=== PATIENT | male | born 1960 | race Caucasian/White ===

== ENCOUNTER 2019-11-21 13:08 | Outpatient (RCR) | payer MEDICARE, MEDICAID, SELFPAY | END 2019-12-18 23:59 | disposition home or self-care (01) | LOC: WOUND 13:08 | PROVIDERS: Visit Provider Nurse Practitioner Family | DX: G35 Multiple sclerosis (principal) | CPT/HCPCS: 87070; 87077; 87186 ==

== ENCOUNTER 2019-12-02 18:26 | Outpatient (REF) | payer MEDICARE, MEDICAID, SELFPAY ==
[2019-12-02 18:48] LABS: Hemoglobin 14.7 g/dL (11.7-16.6); Mean Corpuscular Hemoglobin 29.3 pg (28.0-34.0); Mean Corpuscular Volume 91.6 fL (80-94); Mean Platelet Volume 9.3 fL (7.4-10.4); Platelet Count 280 10^3/cmm (130-400); Red Blood Count 5.02 10^6/uL (4.1-5.3); Red Cell Distribution Width 12.9 % (12.1-15.1); White Blood Count 6.1 10^3/uL (4.0-10.0)
[2019-12-02 18:59] LABS: Alanine Aminotransferase 28 U/L (0-41); Albumin Level 4.4 g/dL (3.5-5.2); Alkaline Phosphatase 109 IU/L (40-130); Aspartate Amino Transferase 20 U/L (0-40); Blood Urea Nitrogen 13 mg/dL (6-20); Calcium 10.3 mg/dL (8.5-10.5); Carbon Dioxide 29 mmol/L (22-29); Chloride 95 mmol/L (98-107); Globulin 3.4 g/dL (1.3-4.6); Glomerular Filtration Rate 68.5 mL/min (90-130); Glucose 115 mg/dL (65-115); Immunoglobulin IGA 219 mg/dL (70-400); Immunoglobulin IGG 1192 mg/dL (700-1600); Osmolality Calculated 283 mOsm/kg (285-295); Sodium 138 mmol/L (136-145); Total Bilirubin 0.2 mg/dL (0.15-1.2); Total Protein 7.8 g/dL (6.6-8.7)
[2019-12-02 19:16] LABS: Immunoglobulin IGM < 25 mg/dL (40-230)
[2019-12-02 19:50] LABS: Absolute Segmented Neutrophil 3.9 10/cmm (1.6-7.1); Basophils Absolute 0.1 10^3/cmm (0.0-0.2); Lymphocytes 24 %; Lymphocytes Absolute 1.6 10^3/cmm (1.2-3.4); Monocytes Absolute 0.4 10^3/cmm (0.1-0.6); Segmented Neutrophils 65 %; Total Cells Counted 100 (0-100)
[2019-12-02 19:51] LABS: Platelet Estimate Normal (Normal)
== END 2019-12-02 18:27 | disposition home or self-care (01) ==
LOC: LAB 18:26
PROVIDERS: Visit Provider Psychiatry & Neurology Neurology
DX: G35 Multiple sclerosis (principal); Z79.899 Other long term (current) drug therapy
CPT/HCPCS: 80053; 82784; 85007; 85027; 86355; 86357; 86359; 86360

== ENCOUNTER → 2019-12-03 08:00 | Outpatient (BNVA) | payer MEDICARE, MEDICAID, SELFPAY | PROVIDERS: Visit Provider Nurse Practitioner Family | DX: A49.9 Bacterial infection, unspecified (principal); N39.0 Urinary tract infection, site not specified | CPT/HCPCS: 80053; 81001; 87077; 87086; 87186 ==

== ENCOUNTER 2020-01-19 15:57 | Outpatient (CLI) | payer MEDICARE, MEDICAID, SELFPAY | END 2020-01-19 15:58 | disposition home or self-care (01) | LOC: LAB 16:00 | PROVIDERS: Visit Provider Psychiatry & Neurology Neurology | DX: G35 Multiple sclerosis (principal) | CPT/HCPCS: 86355; 86357; 86359; 86360 ==

== ENCOUNTER 2023-06-14 21:38 | Emergency (ER) | payer MEDICARE, MEDICAID, SELFPAY ==
[2023-06-14 21:40] VITALS: BP 123/92; PULSE 100; RESP 20; TEMP 35.5; O2SAT 94; BMI 24.4
--- NOTE | 2023-06-14 21:58 | XRR_ITS ---
PROCEDURE INFORMATION: Exam: XR Chest Exam date and time: 06/14/2023 10:21 PM Age: 63 years old Clinical indication: Patient HX: General weakness. History of ms. TECHNIQUE: Imaging protocol: Radiologic exam of the chest. Views: 1 view. COMPARISON: MR cervical spine wo/w [id number] 05/28/2019 1:17 PM FINDINGS: Lungs: Unremarkable. No consolidation. Pleural spaces: Unremarkable. No pleural effusion. No pneumothorax. Heart/Mediastinum: Unremarkable. No cardiomegaly. Bones/joints: Unremarkable. XR/XR chest 1V portable [id number] IMPRESSION: No acute findings.
[2023-06-14 22:07] LABS: Basophils # 0.1 10^3/uL (0.0-0.1); Basophils % 0.7 %; Eosinophils # 0.1 10^3/uL (0.0-0.8); Eosinophils % 1.1 %; Hematocrit 42.3 % (37-53); Lymphocytes # 1.6 10^3/uL (0.8-4.8); Lymphocytes % 18.6 %; Mean Corpuscular Hemoglobin 29.3 pg (27-33); Mean Corpuscular Volume 86.2 fl (82-101); Mean Platelet Volume 9.4 fL (7.4-10.4); Monocytes # 0.9 10^3/uL (0.2-0.9); Monocytes % 10.5 %; Neutrophils # 5.82 10^3/uL (1.8-7.7); Neutrophils % 68.9 %; Nucleated Red Blood Cells % 0 %; Platelet Count 343 10^3/cmm (157-399); Red Blood Count 4.91 10^6/uL (3.85-5.65); Red Cell Distribution Width 13.3 % (12.1-15.1); White Blood Count 8.45 10^3/uL (3.29-11.43)
--- NOTE | 2023-06-14 22:14 | ECG_ITS ---
[facility] Test Date: 2023-06-14 Pat Name: Eldon Tristan Department: Room: Gender: Male [employer]: : 1960 Requested By: Karlos Young Order Number: [id number] Meena MD: Kiersten Wiley M.D. Measurements Intervals [place] Rate: 98 P: 38 [place]: 173 QRS: -52 QRSD: 108 T: 74 QT: 337 QTc: 432 Interpretive Statements SINUS RHYTHM WITH OCCASIONAL SUPRAVENTRICULAR PREMATURE COMPLEXES LEFT AXIS DEVIATION [QRS AXIS < -30] PATTERN CONSISTENT WITH PULMONARY DISEASE Compared to ECG 10/18/2014 12:18:09 Sinus tachycardia no longer present Myocardial infarct finding no longer present Electronically Signed On 06-15-2023 7:08:25 CDT by Kiersten Wiley M.D. [id number]
[2023-06-14 22:22] LABS: Alanine Aminotransferase 15 U/L (0-41); Alkaline Phosphatase 112 U/L (40-130); Anion Gap 13.2 (5-19); Aspartate Amino Transferase 15 U/L (0-40); Blood Urea Nitrogen 12 mg/dL (8-23); C Reactive Protein 19.5 mg/L (0.0-4.9); Calcium 9.4 mg/dL (8.5-10.5); Carbon Dioxide 26 mmol/L (22-29); Chloride 106 mmol/L (98-107); Globulin 2.5 g/dL (1.3-4.6); Glomerular Filtration Rate 75.5 mL/min (90-130); Glucose 106 mg/dL (65-115); Magnesium 2.2 mg/dL (1.7-2.3); Osmolality Calculated 292 mOsm/kg (285-295); Potassium 4.2 mmol/L (3.5-5.1); Sodium 141 mmol/L (136-145); Total Bilirubin 0.2 mg/dL (0.15-1.2); Total Protein 6.5 g/dL (6.6-8.7)
--- NOTE | 2023-06-14 22:26 | W.ED.WEAKNES ---
HPI - Weakness General: Chief complaint: Weakness Stated complaint: exacerbation of MS Time Seen by Provider: 06/14/23 21:45 History of Present Illness: Patient presents to the ER from the care home by EMS with complaints of having a MS exacerbation. The patient says he has been having jerking and weakness in his upper extremities since he change his medicine from ropinirole to a lower dose and started him on gabapentin. He thinks it started all of his problems. Patient says he normally does not have these types of relapses. He is also not been able to get his normal 6-month infusions because of insurance issues and he is approximately 1 month out now. He does have him rescheduled for sometime next month. Review of Systems General: Reports: 10 or more systems reviewed and unremarkable except in HPI and below PFSH ED PFSH: Medical History (Updated 06/14/23 @ 23:59 by Karlos Young DO) Anxiety and depression Depression Joint pain Multiple sclerosis MS diagnosed at 31 years of age but became symptomatic at age 29 Paranoia Restless leg Family History Other Multiple sclerosis Social History Smoking and tobacco/nicotine status: never used tobacco/nicotine Alcohol intake: never Substance/Drug Use: never Physical Exam Const: COMMON NORMALS: no acute distress, average body habitus, patient oriented x3, no limitations, healthy appearing, alert and well nourished HENMT: COMMON NORMALS: normocephalic, atraumatic, hearing grossly normal bilaterally, external ears normal, Normal external nose present, moist oral mucous membranes and oropharynx normal HEAD & SCALP: normocephalic and atraumatic NOSE: Normal external nose present EXTERNAL EAR: Yes external ears normal Neck/C-Spine: COMMON NORMALS: no JVD Chest: COMMONS NORMALS: normal inspection of the chest and normal palpation of entire chest wall Resp: COMMON NORMALS: normal respiratory effort, No retractions, No use of accessory muscles and clear to auscultation bilaterally AUSCULTATION: clear to auscultation bilaterally Cardio: COMMON NORMALS: no JVD, regular rate, regular rhythm, S1 normal heart sound present, S2 normal heart sound present, No gallops present (Cardio), No clicks present (Cardio), No murmurs present (Cardio) and No rub (Cardio) RATE: regular rate RHYTHM: regular rhythm HEART SOUNDS: S1 normal heart sound present and S2 normal heart sound present GI: COMMON NORMALS: Normal to inspection, nondistended, normoactive bowel sounds present, Soft to palpation, non-tender, No hepatosplenomegaly present and no masses PALPATION: Yes Soft to palpation and Yes No hepatosplenomegaly present Neuro: COMMON NORMALS: patient oriented x3 SENSORIUM/ORIENTATION: Yes alert Course Vital Signs: Vital signs: Vital Signs Temperature 96 F L 06/14/23 21:40 Pulse Rate 100 06/14/23 21:40 Respiratory Rate 20 H 06/14/23 21:40 Blood Pressure 123/92 06/14/23 21:40 Pulse Oximetry 94 06/14/23 21:40 MDM - Weakness Medical Decision Making Patient presents to the ER for evaluation for possible MS exacerbation due to weakness and the extremities and more tremor tics. Patient does have contractures. Patient's not been able to take his MS medicine consistently due to the infusions and insurance. Lab work was obtained as well as urine and a chest x-ray all of which did not show any acute findings. Patient was given 125 mg Solu-Medrol IV and will be discharged on prednisone 50 mg daily for the next 5 days. Patient should follow-up with his PCP within the next 7 to 10 days. Differential Diagnosis Unlikely acute myocardial infarction, anemia, hypoglycemia, hypothyroidism, rhabdomyolysis, sepsis or dehydration Medical Records I reviewed the patient's medical records. Lab Data I reviewed the patient's lab results. 06/14/23 20:51 06/14/23 20:51 Radiology Impressions Chest X-Ray 06/14/23 21:58 IMPRESSION: No acute findings. Laboratory Results WBC 8.45 10^3/uL (3.29-11.43) 06/14/23 20:51 RBC 4.91 10^6/uL (3.85-5.65) 06/14/23 20:51 Hgb 14.40 g/dL (11.27-16.99) 06/14/23 20:51 Hct 42.3 % (37-53) 06/14/23 20:51 MCV 86.2 fl (82-101) 06/14/23 20:51 MCH 29.3 pg (27-33) 06/14/23 20:51 MCHC 34.0 g/dL (30-55) 06/14/23 20:51 RDW 13.3 % (12.1-15.1) 06/14/23 20:51 Plt Count 343 10^3/cmm (157-399) 06/14/23 20:51 MPV 9.4 fL (7.4-10.4) 06/14/23 20:51 Neut % (Auto) 68.9 % 06/14/23 20:51 Lymph % (Auto) 18.6 % 06/14/23 20:51 [place] % (Auto) 10.5 % 06/14/23 20:51 Eos % (Auto) 1.1 % 06/14/23 20:51 Baso % (Auto) 0.7 % 06/14/23 20:51 Neut # (Auto) 5.82 10^3/uL (1.8-7.7) 06/14/23 20:51 Lymph # (Auto) 1.6 10^3/uL (0.8-4.8) 06/14/23 20:51 [place] # (Auto) 0.9 10^3/uL (0.2-0.9) 06/14/23 20:51 Eos # (Auto) 0.1 10^3/uL (0.0-0.8) 06/14/23 20:51 Baso # (Auto) 0.1 10^3/uL (0.0-0.1) 06/14/23 20:51 Nucleated RBC % (auto) 0 % 06/14/23 20:51 Nucleated RBCs # 0.0 /100WBC 06/14/23 20:51 Sodium 141 mmol/L (136-145) 06/14/23 20:51 Potassium 4.2 mmol/L (3.5-5.1) 06/14/23 20:51 Chloride 106 mmol/L (98-107) 06/14/23 20:51 Carbon Dioxide 26 mmol/L (22-29) 06/14/23 20:51 Anion Gap 13.2 (5-19) 06/14/23 20:51 BUN 12 mg/dL (8-23) 06/14/23 20:51 Creatinine 1.0 mg/dL (0.7-1.2) 06/14/23 20:51 GFR Calculation 75.5 mL/min (90-130) L 06/14/23 20:51 Glucose 106 mg/dL (65-115) 06/14/23 20:51 Calculated Osmolality 292 mOsm/kg (285-295) 06/14/23 20:51 Calcium 9.4 mg/dL (8.5-10.5) 06/14/23 20:51 Magnesium 2.2 mg/dL (1.7-2.3) 06/14/23 20:51 Total Bilirubin 0.2 mg/dL (0.15-1.2) 06/14/23 20:51 AST 15 U/L (0-40) 06/14/23 20:51 ALT 15 U/L (0-41) 06/14/23 20:51 Alkaline Phosphatase 112 U/L (40-130) 06/14/23 20:51 C-Reactive Protein 19.5 mg/L (0.0-4.9) H 06/14/23 20:51 Total Protein 6.5 g/dL (6.6-8.7) L 06/14/23 20:51 Albumin 4.0 g/dL (3.5-5.2) 06/14/23 20:51 Globulin 2.5 g/dL (1.3-4.6) 06/14/23 20:51 Urine Color Light yellow (Yellow) 06/14/23 23:30 Urine Appearance Clear (CLEAR) 06/14/23 23:30 Urine pH 6 (5-7) 06/14/23 23:30 Ur Specific [place] 1.010 (1.005-1.030) 06/14/23 23:30 Urine Protein Neg (Negative) 06/14/23 23:30 Urine Glucose (UA) Norm (Normal) 06/14/23 23:30 Urine Ketones Negative (Negative) 06/14/23 23:30 Urine Blood Neg (Negative) 06/14/23 23:30 Urine Nitrate Negative (Negative) 06/14/23 23:30 Urine Bilirubin Neg (Negative) 06/14/23 23:30 Urine Urobilinogen Neg mg/dL (Negative) 06/14/23 23:30 Ur Leukocyte Esterase Negative (Negative) 06/14/23 23:30 All radiology interpretation(s) finalized by discharge EKG Data EKG 1: I personally reviewed and interpreted this EKG as follows: EKG interpretation date: 06/14/23 EKG interpretation time: 22:14 Prior EKG tracings: not available for review Interpretation: EKG showed ventricular rate 98 bpm, OR interval 173, QRS duration 108, QTc of 393, sinus rhythm with occasional PVC, left axis deviation, Discharge Plan Discharge Patient Disposition: Home Clinical Impression: Multiple sclerosis Condition: Stable Prescriptions: New prednisone 50 mg tablet 50 mg PO DAILY Qty: 5 0RF No Action (DME) Motorized Wheelchair Qty: 1 0RF Rx Instructions: As directed ropinirole 0.25 mg tablet 0.25 mg PO DAILY diazepam 5 mg tablet 5 mg PO BID PRN sumatriptan succinate [Imitrex] 25 mg tablet 25 mg PO Q2H PRN diclofenac sodium [Voltaren] 1 % gel 2 gm TOPICAL QID 30 Days Qty: 100 5RF paroxetine HCl [Paxil] 10 mg tablet 10 mg PO QDAY 30 Days Qty: 30 1RF ropinirole [Requip XL] 12 mg tablet extended release 24 hr 12 mg PO DAILY ropinirole 2 mg tablet 2 mg PO BID aspirin [Aspir-Joanne] 325 mg tablet,delayed release (DR/EC) 325 mg PO DAILY acetaminophen [Tylenol Extra Strength] 500 mg tablet 500 mg PO Q6H PRN Discharge Orders: Discharge ED (Routine); Ordered 06/14/23 Ordered By: Karlos Young Patient Instructions: Multiple Sclerosis Activity Restrictions/Additional Instructions: Please take your medicine as directed. Please follow-up with your family practice physician within the next 7 to 10 days for further evaluation and treatment. Coding Level of Care Code ED Head Bucker for Katelyn Malone
[2023-06-14] MEDS: methylPREDNISolone sod succ 125 MG in water for injection-sterile 2 ML 24 MG IVP (23:08)
[2023-06-14 23:40] LABS: Add Urine Microscopic? NO; Charge for UA Resulting for Rev
[2023-06-14 23:47] LABS: Bilirubin Urine Neg (Negative); Blood Urine Neg (Negative); Glucose Urine UA Norm (Normal); Ketones Urine Negative (Negative); Leukocyte Esterase Urine Negative (Negative); Nitrate Urine Negative (Negative); Protein Urine Neg (Negative); Urine Appearance Clear (CLEAR); Urine Color Light yellow (Yellow); Urobilinogen Urine Neg (Negative); pH Urine 6 (5-7)
[2023-06-15 01:28] VITALS: BP 123/83; PULSE 77; O2SAT 95
[2023-06-15 01:30] VITALS: BP 123/83; PULSE 77; O2SAT 95
== END 2023-06-15 01:32 | disposition home or self-care (01) ==
PROVIDERS: Emergency Provider Emergency Medicine
DX: G35 Multiple sclerosis (principal); Z79.82 Long term (current) use of aspirin
CPT/HCPCS: 71045; 80053; 81003; 83735; 85025; 86140; 93005; 96374; 99285; J2930

== ENCOUNTER 2023-10-06 15:49 | Inpatient (IN) | payer MEDICARE, MEDICAID, SELFPAY ==
[2023-10-06] VITALS (30 sets, daily range): BP systolic 79–119; BP diastolic 44–70; PULSE 88–130; RESP 18–25; TEMP 37.1–39.5; O2SAT 90–97; BMI 25.7; BMI 27.5
--- NOTE | 2023-10-06 15:54 | ECG_ITS ---
[facility] Test Date: 2023-10-06 Pat Name: Eldon Tristan Department: Room: Gender: Male [employer]: : 1960 Requested By: Nina Corrales Order Number: [id number] Robledo MD: Mike Pham M.D. Measurements Intervals [place] Rate: 127 P: 23 [place]: 153 QRS: -39 QRSD: 88 T: 63 QT: 298 QTc: 435 Interpretive Statements SINUS TACHYCARDIA LEFT AXIS DEVIATION [QRS AXIS < -30] PATTERN CONSISTENT WITH PULMONARY DISEASE Compared to ECG 06/14/2023 22:14:31 Sinus rhythm no longer present Electronically Signed On 10-07-2023 7:47:25 CORPORATE ADMINISTRATOR by Mike Pham M.D. [id number]
--- NOTE | 2023-10-06 15:54 | XRR_ITS ---
PROCEDURE INFORMATION: Exam: XR Chest Exam date and time: 10/06/2023 4:16 PM Age: 63 years old Clinical indication: Shortness of breath; Patient HX: SOB TECHNIQUE: Imaging protocol: Radiologic exam of the chest. Views: 1 view. COMPARISON: CR XR chest 1V portable [id number] 06/14/2023 10:21 PM FINDINGS: Lungs: Unremarkable. No consolidation. Pleural spaces: Unremarkable. No pleural effusion. No pneumothorax. Heart/Mediastinum: Unremarkable. No cardiomegaly. Bones/joints: No acute findings. XR/XR chest 1V [id number] IMPRESSION: No acute findings.
--- NOTE | 2023-10-06 16:06 | ED_ITS ---
Documented by User: Nina Storm MD 10/06/23 18:11 HPI - Nausea/Vomiting/Diarrhea 2 General: Chief complaint: Nausea/Vomiting/Diarrhea Stated complaint: N/V Time Seen by Provider: 10/06/23 15:51 History of Present Illness: 63-year-old man with a history of multip le sclerosis who presents to the emergency room after having a fever and altered mental status. He says he was feeling good this morning. Family reports a temp of 105. EMS reports similar 104. He had been given some Tylenol at home. While he had the fever he had become fairly confused. He says he has had some cough. EMS reports he did have an episode of nausea and vomiting on the way here. Currently he says he feels fine. No chest pain. No shortness of breath. No abdominal pain. He is not confused any longer. No focal motor deficits outside of his baseline. Review of Systems 2 Narrative: Constitutional symptoms: Negative except as documented in HPI. Skin symptoms: Negative except as documented in HPI. Eye symptoms: Negative except as documented in HPI. ENMT symptoms: Negative except as documented in HPI. Respiratory symptoms: Negative except as documented in HPI. Cardiovascular symptoms: Negative except as documented in HPI. Gastrointestinal symptoms: Negative except as documented in HPI. Genitourinary symptoms: Negative except as documented in HPI. Musculoskeletal symptoms: Negative except as documented in HPI. Neurologic symptoms: Negative except as documented in HPI. Psychiatric symptoms: Negative except as documented in HPI. Endocrine symptoms: Negative except as documented in HPI. PFSH ED 2 PFSH: Medical History (Updated 10/06/23 @ 20:56 by Loyda Monique MD) Joint pain Anxiety and depression Paranoia Restless leg Multiple sclerosis MS diagnosed at 31 years of age but became symptomatic at age 29 Depression Family History Other Multiple sclerosis Social History Smoking and tobacco/nicotine status: never used tobacco/nicotine Alcohol intake: never Substance/Drug Use: never Physical Exam 2 Narrative: EXAM NARRATIVE: general: Alert, no acute distress. Skin: Warm, dry. Wound on the right ankle with dressing in place. However there is quite a bit of edema and erythema surrounding this. Also a wound on his buttock. These are several small wounds with also with some surrounding erythema. This likely could be a source of sepsis. Head: Normocephalic, atraumatic. Neck: Supple, trachea midline. Eye: Extraocular movements are intact. Ears, nose, mouth and throat: mucosa moist. Cardiovascular: Regular, Normal peripheral perfusion. Respiratory: Lungs are clear to auscultation, respirations are non-labored, breath sounds are equal, Symmetrical chest wall expansion. Gastrointestinal: Soft, Nontender, Non distended, Normal bowel sounds. Musculoskeletal: Patient has contractured right leg it is bent under his left. Weakness in his arms. No obvious deformity. Neurological: Alert and oriented, No focal neurological deficit observed. Psychiatric: Cooperative, appropriate mood & affect. Course 2 Vital Signs: Vital signs: Vital Signs Temperature 98.8 F 10/06/23 15:53 Pulse Rate 118 H 10/06/23 19:48 Respiratory Rate 25 H 10/06/23 19:48 Blood Pressure 89/68 10/06/23 19:48 Pulse Oximetry 97 10/06/23 19:48 Oxygen Delivery Me thod Nasal Cannula 10/06/23 19:48 Oxygen Flow Rate 3 10/06/23 19:48 MDM - Nausea/Vomiting/Diarrhea Medical Decision Making Medical decision making: Differential diagnosis including but not limited to and based on the above HPI, review of systems and physical exam: Patient with MS and a fever that is quite high. Some tachycardia. Concern for sepsis. Source is possible her urine, chest or skin . Also testing for flu and COVID. Blood cultures and lactic acid were ordered. 3 L normal saline bolus ordered. Broad-spectrum antibiotics were ordered. Lab Review: Laboratory results were reviewed and interpreted by myself the emergency room physician. White count is 22,000. The rest of lab work is pending Chest x-ray: No acute process. No pneumothorax. No infiltrate. No cardiomegaly. This was reviewed and interpreted by myself the ER physician. Lab Data 10/06/23 17:32 10/06/23 17:32 Radiology Impressions Chest X-Ray 10/06/23 15:54 IMPRESSION: No acute findings. Laboratory Results WBC 23.21 10^3/uL (3.29-11.43) H 10/06/23 17:32 RBC 5.05 10^6/uL (3.85-5.65) 10/06/23: Hgb 14.80 g/dL (11.27-16.99) 10/06/23: Hct 45.0 % (37-53) 10/06/23: MCV 89.1 fl (82-101) 10/06/23: MCH 29.3 pg (27-33) 10/06/23: MCHC 32.9 g/dL (30-55) 10/06/23: RDW 13.3 % (12.1-15.1) 10/06/23: Plt Count 158 10^3/cmm (157-399) 10/06/23: MPV 8.2 fL (7.4-10.4) 10/06/23: Neut % (Auto) 86.4 % 10/06/23: Lymph % (Auto) 2.4 % 10/06/23: [place] % (Auto) 9.7 % 10/06/23: Eos % (Auto) 0.0 % 10/06/23: Baso % (Auto) 0.3 % 10/06/23: Neut # (Auto) 20.07 10^3/uL (1.8-7.7) H 10/06/23: Lymph # (Auto) 0.6 10^3/uL (0.8-4.8) L 10/06/23: [place] # (Auto) 2.2 10^3/uL (0.2-0.9) H 10/06/23: Eos # (Auto) 0.0 10^3/uL (0.0-0.8) 10/06/23: Baso # (Auto) 0.1 10^3/uL (0.0-0.1) 10/06/23: Nucleated RBC % (auto) 0 % 10/06/23 Nucleated RBCs # 0.0 /100WBC 10/06/23: D-Dimer 0.37 ug/mLFEU (0-0.59) 10/06/23: Sodium 131 mmol/L (136-145) L 02/17/24 17:32 Potassium 3.8 mmol/L (3.5-5.1) 10/06/23 17:32 Chloride 99 mmol/L (98-107) 10/06/23 17:32 Carbon Dioxide 22 mmol/L (22-29) 10/06/23 17:32 Anion Gap 13.8 (5-19) 10/06/23 17:32 BUN 16 mg/dL (8-23) 10/06/23 17:32 Creatinine 1.0 mg/dL (0.7-1.2) 10/06/23 17:32 GFR Calculation 75.5 mL/min (90-130) L 10/06/23 17:32 Glucose 130 mg/dL (65-115) H 10/06/23 17:32 Calculated Osmolality 275 mOsm/kg (285-295) L 10/06/23 17:32 Lactic Acid 1.4 mmol/L (0.5-2.2) 10/06/23 17: Calcium 8.2 mg/dL (8.5-10.5) L 10/06/23 17:32 Total Bilirubin 0.4 mg/dL (0.15-1.2) 10/06/23 17: AST 17 U/L (0-40) 10/06/23: ALT 14 U/L (0-41) 10/06/23 17:32 Alkaline Phosphatase 103 U/L (40-130) 10/06/23 17:32 C-Reactive Protein 44.9 mg/L (0.0-4.9) H 10/06/23 17:32 Total Protein 6.0 g/dL (6.6-8.7) L 10/06/23 17:32 Albumin 3.3 g/dL (3.5-5.2) L 10/06/23 17:32 Globulin 2.7 g/dL (1.3-4.6) 10/06/23 17:32 Urine Color Yellow (Yellow) 10/06/23 19:17 Urine Appearance Clear (CLEAR) 10/06/23 19:17 Urine pH 7 (5-7) 10/06/23 19:17 Ur Specific [place] 1.000 (1.005-1.030) L 10/06/23 19:17 Urine Protein Trace (Negative) 10/06/23 19:17 Urine Glucose (UA) Norm (Normal) 10/06/23 19:17 Urine Ketones Negative (Negative) 10/06/23 19:17 Urine Blood 2+ (Negative) H 10/06/23 19:17 Urine Nitrate Negative (Negative) 10/06/23 19:17 Urine Bilirubin Neg (Negative) 10/06/23 19:17 Urine Urobilinogen Norm mg/dL (Negative) 10/06/23 19:17 Ur Leukocyte Esterase Trace (Negative) H 10/06/23 19:17 Urine RBC 5-10 /hpf (0-2) H 10/06/23 19:17 Urine WBC 0-4 /hpf (0-5) H 10/06/23 19:17 Ur Squamous Epith Cells 0-4 /hpf (0-5) H 10/06/23 19:17 Amorphous Sediment Not Reportable 10/06/23 19:17 Urine Bacteria Trace /hpf (NONE) 10/06/23 19:17 Urine Mucus Trace /hpf 10/06/23 19:17 Influenza Type A Ag negative (Negative) 10/06/23 16:08 Influenza Type B Ag negative (Negative) 10/06/23 16:08 SARS-CoV-2 Ag (Rapid) negative (Negative) 10/06/23 16:08 XR interpretation done by ED provider, pending radiology final review Discharge Plan Discharge Patient Disposition: Admitted As Inpatient Admit Provider: Kamran Sears Clinical Impression: Multiple sclerosis, Sepsis, Decubitus ulcer Condition: Stable Coding Level of Care Code ED Correspondent for Chg Fwd Documented by User: Loyda Monique MD 10/06/23 21:11 HPI - Nausea/Vomiting/Diarrhea 2 General: Chief complaint: Nausea/Vomiting/Diarrhea Stated complaint: N/V Time Seen by Provider: 10/06/23 15:51 PFSH ED 2 PFSH: Medical History (Updated 10/06/23 @ 20:56 by Loyda Monique MD) Joint pain Anxiety and depression Paranoia Restless leg Multiple sclerosis MS diagnosed at 31 years of age but became symptomatic at age 29 Depression Family History Other Multiple sclerosis Social History Smoking and tobacco/nicotine status: never used tobacco/nicotine Alcohol intake: never Substance/Drug Use: never Course 2 Vital Signs: Vital signs: Vital Signs Temperature 98.8 F 10/06/23 15:53 Pulse Rate 118 H 10/06/23 19:48 Respiratory Rate 25 H 10/06/23 19:48 Blood Pressure 89/68 10/06/23 19:48 Pulse Oximetry 97 10/06/23 19:48 Oxygen Delivery Me thod Nasal Cannula 10/06/23 19:48 Oxygen Flow Rate 3 10/06/23 19:48 MDM - Nausea/Vomiting/Diarrhea Medical Decision Making Medical decision making: Differential diagnosis including but not limited to and based on the above HPI, review of systems and physical exam: Patient with MS and a fever that is quite high. Some tachycardia. Concern for sepsis. Source is possible her urine, chest or skin . Also testing for flu and COVID. Blood cultures and lactic acid were ordered. 3 L normal saline bolus ordered. Broad-spectrum antibiotics were ordered. Lab Review: Laboratory results were reviewed and interpreted by myself the emergency room physician. White count is 22,000. The rest of lab work is pending Chest x-ray: No acute process. No pneumothorax. No infiltrate. No cardiomegaly. This was reviewed and interpreted by myself the ER physician. Patient presents here with sepsis his blood pressures improved after sepsis IV bolus he started antibiotics as well. He does have decubitus ulcer could be source of his infection spoke to the hospitalist will admit to ICU Lab Data 10/06/23 17:32 10/06/23 17:32 Radiology Impressions Chest X-Ray 10/06/23 15:54 IMPRESSION: No acute findings. Laboratory Results WBC 23.21 10^3/uL (3.29-11.43) H 10/06/23 17:32 RBC 5.05 10^6/uL (3.85-5.65) 10/06/23 17:32 Hgb 14.80 g/dL (11.27-16.99) 10/06/23: Hct 45.0 % (37-53) 10/06/23: MCV 89.1 fl (82-101) 10/06/23: MCH 29.3 pg (27-33) 10/06/23: MCHC 32.9 g/dL (30-55) 10/06/23: RDW 13.3 % (12.1-15.1) 10/06/23: Plt Count 158 10^3/cmm (157-399) 10/06/23: MPV 8.2 fL (7.4-10.4) 10/06/23: Neut % (Auto) 86.4 % 10/06/23: Lymph % (Auto) 2.4 % 10/06/23: [place] % (Auto) 9.7 % 10/06/23 Eos % (Auto) 0.0 % 10/06/23 Baso % (Auto) 0.3 % 10/06/23: Neut # (Auto) 20.07 10^3/uL (1.8-7.7) H 10/06/23: Lymph # (Auto) 0.6 10^3/uL (0.8-4.8) L 10/06/23: [place] # (Auto) 2.2 10^3/uL (0.2-0.9) H 10/06/23: Eos # (Auto) 0.0 10^3/uL (0.0-0.8) 10/06/23: Baso # (Auto) 0.1 10^3/uL (0.0-0.1) 10/06/23 Nucleated RBC % (auto) 0 % 10/06/23 Nucleated RBCs # 0.0 /100WBC 10/06/23: D-Dimer 0.37 ug/mLFEU (0-0.59) 10/06/23: Sodium 131 mmol/L (136-145) L 10/06/23: Potassium 3.8 mmol/L (3.5-5.1) 02/17/24 17:32 Chloride 99 mmol/L (98-107) 10/06/23 17:32 Carbon Dioxide 22 mmol/L (22-29) 10/06/23 17:32 Anion Gap 13.8 (5-19) 10/06/23 17:32 BUN 16 mg/dL (8-23) 10/06/23 17:32 Creatinine 1.0 mg/dL (0.7-1.2) 10/06/23 17:32 GFR Calculation 75.5 mL/min (90-130) L 10/06/23 17:32 Glucose 130 mg/dL (65-115) H 10/06/23 17:32 Calculated Osmolality 275 mOsm/kg (285-295) L 10/06/23 17:32 Lactic Acid 1.4 mmol/L (0.5-2.2) 10/06/23 17:32 Calcium 8.2 mg/dL (8.5-10.5) L 10/06/23 17:32 Total Bilirubin 0.4 mg/dL (0.15-1.2) 10/06/23 17:32 AST 17 U/L (0-40) 10/06/23 17:32 ALT 14 U/L (0-41) 10/06/23 17:32 Alkaline Phosphatase 103 U/L (40-130) 10/06/23 17:32 C-Reactive Protein 44.9 mg/L (0.0-4.9) H 10/06/23 17:32 Total Protein 6.0 g/dL (6.6-8.7) L 10/06/23 17:32 Albumin 3.3 g/dL (3.5-5.2) L 10/06/23 17:32 Globulin 2.7 g/dL (1.3-4.6) 10/06/23 17:32 Urine Color Yellow (Yellow) 10/06/23 19:17 Urine Appearance Clear (CLEAR) 10/06/23 19:17 Urine pH 7 (5-7) 10/06/23 19:17 Ur Specific [place] 1.000 (1.005-1.030) L 10/06/23 19:17 Urine Protein Trace (Negative) 10/06/23 19:17 Urine Glucose (UA) Norm (Normal) 10/06/23 19:17 Urine Ketones Negative (Negative) 10/06/23 19:17 Urine Blood 2+ (Negative) H 10/06/23 19:17 Urine Nitrate Negative (Negative) 10/06/23 19:17 Urine Bilirubin Neg (Negative) 10/06/23 19:17 Urine Urobilinogen Norm mg/dL (Negative) 10/06/23 19:17 Ur Leukocyte Esterase Trace (Negative) H 10/06/23 19:17 Urine RBC 5-10 /hpf (0-2) H 10/06/23 19:17 Urine WBC 0-4 /hpf (0-5) H 10/06/23 19:17 Ur Squamous Epith Cells 0-4 /hpf (0-5) H 10/06/23 19:17 Amorphous Sediment Not Reportable 10/06/23 19:17 Urine Bacteria Trace /hpf (NONE) 10/06/23 19:17 Urine Mucus Trace /hpf 10/06/23 19:17 Influenza Type A Ag negative (Negative) 10/06/23 16:08 Influenza Type B Ag negative (Negative) 10/06/23 16:08 SARS-CoV-2 Ag (Rapid) negative (Negative) 10/06/23 16:08 Discharge Plan Discharge Patient Disposition: Admitted As Inpatient Admit Provider: Kamran Sears Clinical Impression: Multiple sclerosis, Sepsis, Decubitus ulcer Condition: Stable Coding Level of Care Code ED Correspondent for Katelyn Malone
--- NOTE | 2023-10-06 16:11 | PC.PHAR ---
PT IS FROM [facility]. [email or web address] LIST 10/06/23 4:10PM
[2023-10-06 16:36] LABS: Influenza A by IFA negative (Negative); Influenza B by IFA negative (Negative); SARS Covid-2 Antigen negative (Negative)
[2023-10-06] MEDS: sodium chloride 0.9% 1,000 ML 999 ML IV ×4 (17:03→19:30)
[2023-10-06 17:43] LABS: Basophils # 0.1 10^3/uL (0.0-0.1); Basophils % 0.3 %; Lymphocytes # 0.6 10^3/uL (0.8-4.8); Lymphocytes % 2.4 %; Mean Corpuscular HGB Conc 32.9 g/dL (30-55); Mean Corpuscular Hemoglobin 29.3 pg (27-33); Mean Corpuscular Volume 89.1 fl (82-101); Mean Platelet Volume 8.2 fL (7.4-10.4); Monocytes # 2.2 10^3/uL (0.2-0.9); Monocytes % 9.7 %; Neutrophils # 20.07 10^3/uL (1.8-7.7); Neutrophils % 86.4 %; Nucleated Red Blood Cells % 0 %; Platelet Count 158 10^3/cmm (157-399); Red Blood Count 5.05 10^6/uL (3.85-5.65); Red Cell Distribution Width 13.3 % (12.1-15.1); White Blood Count 23.21 10^3/uL (3.29-11.43)
[2023-10-06 18:11] LABS: Lactic Sepsis W/Reflex 1.4 mmol/L (0.5-2.2)
[2023-10-06 18:13] LABS: Alanine Aminotransferase 14 U/L (0-41); Albumin Level 3.3 g/dL (3.5-5.2); Alkaline Phosphatase 103 U/L (40-130); Anion Gap 13.8 (5-19); Aspartate Amino Transferase 17 U/L (0-40); Blood Urea Nitrogen 16 mg/dL (8-23); C Reactive Protein 44.9 mg/L (0.0-4.9); Calcium 8.2 mg/dL (8.5-10.5); Carbon Dioxide 22 mmol/L (22-29); Chloride 99 mmol/L (98-107); Globulin 2.7 g/dL (1.3-4.6); Glomerular Filtration Rate 75.5 mL/min (90-130); Glucose 130 mg/dL (65-115); Osmolality Calculated 275 mOsm/kg (285-295); Potassium 3.8 mmol/L (3.5-5.1); Sodium 131 mmol/L (136-145); Total Bilirubin 0.4 mg/dL (0.15-1.2)
[2023-10-06] MEDS: cefepime 2,000 MG in sodium chloride 0.9% (plus) 50 ML 100 MG IV (18:33)
[2023-10-06] MEDS: linezolid premix 600 MG/300 ML PREMIX 300 MG IV (19:48)
[2023-10-06 19:53] LABS: Bacteria Urine TRACE /hpf; Bilirubin Urine Neg (Negative); Blood Urine 2+ (Negative); Glucose Urine UA Norm (Normal); Ketones Urine Negative (Negative); Leukocyte Esterase Urine Trace (Negative); Mucus Urine TRACE /hpf; Nitrate Urine Negative (Negative); Protein Urine Trace (Negative); Squamous Epithelial Cell Urine 0-4 /hpf (0-5); Urine Appearance Clear (CLEAR); Urine Color Yellow (Yellow); Urobilinogen Urine Norm (Negative); WBC Urine 0-4 /hpf (0-5); pH Urine 7 (5-7)
[2023-10-06 20:27] LABS: D Dimer 0.37 ug/mLFEU (0-0.59)
--- NOTE | 2023-10-06 20:40 | P.HP_ITS ---
Providers/Chief Complaint 2 Chief Complaint: N/V History of Present Illness Pleasant 63-year-old gentleman with history of MS, [facility] resident, remote history of bacteremia he states of unclear source, decubitus ulcer on sacrum and right ankle, on chronic anticoagulation, he states since being on anticoagulant has not had any further issues with blood clots, he is nonambulatory at baseline, does not have a chronic Ojeda or other medical devices. Was brought in from retirement for evaluation to ER due to altered mental status, malaise, fever 105. Reports had 1 episode of vomiting without recurrence, not nauseated currently. He is malaise, with diffuse bodyaches, sweats, chills. States he feels similarly to how he was at the time he was diagnosed with bacteremia in the past. Has mild chronic cough with minimal sputum which is not new. Denies chest pain or pressure. No diarrhea. In ER with sinus tachycardia, hypotension, blood pressure down to 86/65 leukocytosis 20.21. EKG with sinus tachycardia, LAD. Chest x-ray without acute findings. Urinalysis with minimal RBC, WBC. Trace leukocyte esterase. With suspected sepsis received 3 L fluid boluses due to hypotension, blood cultures collected, received cefepime, linezolid. Review of Systems 2 Const: Reports: fever(s), chills, body aches, malaise and diaphoresis ENMT: Denies: throat pain Card: Denies: chest pain, edema, pre-syncope or dyspnea on exertion Resp: Denies: dyspnea, productive cough, change in phlegm color or hemoptysis GI: Reports: vomiting; Denies: abdominal pain, nausea, diarrhea, constipation, hematochezia or melena : Denies: flank pain, difficulty urinating, urinary frequency or hematuria Musc: Denies: back pain, joint swelling or joint redness Skin/Breast: Reports: sores Neuro: Denies: headache(s) Medications/Allergies Home Medications Medication Instructions Recorded Confirmed Last Taken Type diazepam 5 mg tablet 5 mg PO BID PRN 10/24/19 05/15/23 Unknown History diclofenac sodium 1 % topical gel 2 gm topical QID 30 days #100 grams 10/24/19 05/15/23 Unknown Rx (Voltaren) paroxetine HCl 10 mg tablet (Paxil) 10 mg PO QDAY 30 days #30 tabs 10/24/19 05/15/23 Unknown Rx ropinirole 0.25 mg tablet 0.25 mg PO DAILY 10/24/19 05/15/23 Unknown History sumatriptan succinate 25 mg tablet 25 mg PO Q2H PRN 10/24/19 05/15/23 Unknown History (Imitrex) Motorized Wheelchair #1 ea 11/06/19 05/15/23 Unknown Rx acetaminophen 500 mg tablet 500 mg PO Q6H PRN 11/14/19 05/15/23 Unknown History (Tylenol Extra Strength) aspirin 325 mg tablet,delayed 325 mg PO DAILY 11/14/19 05/15/23 Unknown History release (Aspir-Joanne) ropinirole 12 mg tablet,extended 12 mg PO DAILY 11/14/19 05/15/23 Unknown History release 24 hr (Requip XL) ropinirole 2 mg tablet 2 mg PO BID 11/14/19 05/15/23 Unknown History prednisone 50 mg tablet 50 mg PO DAILY #5 tabs 06/14/23 Unknown Rx Allergies Allergy/AdvReac Type Severity Reaction Status Date / Time Iodinated Contrast Media AdvReac nausea and Verified 05/15/23 08:33 vomiting PFSH Acute 2 PFSH: Medical History (Updated 10/06/23 @ 20:56 by Loyda Monique MD) Joint pain Anxiety and depression Paranoia Restless leg Multiple sclerosis MS diagnosed at 31 years of age but became symptomatic at age 29 Depression Family History Other Multiple sclerosis Social History Smoking and tobacco/nicotine status: never used tobacco/nicotine Alcohol intake: never Substance/Drug Use: never Vitals/I&O/Wt Last Vital Signs Temp 98.8 F 10/06/23 15:53 Pulse 118 H 10/06/23 19:48 Resp 25 H 10/06/23 19:48 BP 89/68 10/06/23 19:48 Pulse Ox 97 10/06/23 19:48 O2 Del Method Nasal Cannula 10/06/23 19:48 O2 Flow Rate 3 10/06/23 19:48 10/06/23 10/06/23 10/06/23 06:59 14:59 22:59 Intake Total 3050 / 3050 Balance 3050 / 3050 Weight last 48 hrs Weight 86.183 kg Physical Exam 2 Const: COMMON NORMALS: patient oriented x3 and alert GENERAL APPEARANCE: c ooperative, ill appearing and diaphoretic ORIENTATION/CONSCIOUSNESS: Yes awake OTHER: Chills HENMT: COMMON NORMALS: oropharynx normal Neck/C-Spine: COMMON NORMALS: no JVD Resp: COMMON NORMALS: normal respiratory effort and clear to auscultation bilaterally AUSCULTATION: clear to auscultation bilaterally Cardio: COMMON NORMALS: regular rate and No murmurs present (Cardio) GI: COMMON NORMALS: Normal to inspection, nondistended, normoactive bowel sounds present, Soft to palpation and non-tender PALPATION: Yes Soft to palpation Extremity: COMMON NORMALS: no joint enlargement and no pedal edema N ARRATIVE EXTREMITY EXAM: Weak, worse weakness and spasticity on the R side of body. Contractures RUE and RLE. Neuro: COMMON NORMALS: patient oriented x3; negative for moves all extremities SENSORIUM/ORIENTATION: Yes alert Skin: NARRATIVE SKIN EXAM: Dwecub ulcer and shear injury sacrum, R upper gluteal wound. Minimal bleeding, shallow ulceration/abrasions. Minimal old erythema, minimal induration, no significant swelling or fluctuance. No necrosis or purulent drainage. Above the lateral right ankle there is a wound with ulceration about 2-3 mm deep, about 1 x 3 cm inside with clean base, no tunneling or undermining but with surrounding erythema and edema about 4 cm radius no purulent drainage. Despite edema I do not appreciate fluctuance in that area. I do not appreciate involvement of the ankle joint. Sepsis: Is patient septic: Yes Focused sepsis exam: Warm diaphoretic skin, appears well-perfused, no cyanosis or mottling. Normal capillary refill. Data 10/06/23 17:32 10/06/23 17:32 Micro: Microbiology 10/06/23 17:35 Blood Culture - Preliminary Blood SPECIMEN COLLECTED 10/06/23 17:32 Blood Culture - Preliminary Blood SPECIMEN COLLECTED A&P Assessment and plan (1) Sepsis: With reported fever, tachycardia, tachypnea in ER, leukocytosis 20.21. Sepsis with hypotension on presentation. Reviewed vitals, CBC, CMP, lactic acid, obtained D-dimer, rapid influenza, rapid COVID, UA, chest x-ray, EKG, ER documentation, discussed with ER physician. Hypotensive to presentation but so far has responded to IV fluid boluses. With response to boluses but still borderline shock, blood pressure soft. Continues with sinus tachycardia. Question of possible adrenal insufficiency. So far sepsis with reported transient alteration of mental status with likely metabolic encephalopathy. Blood cultures collected, she was started on cefepime, linezolid, continue broad-spectrum coverage currently with concern for infection. He reports history of bacteremia of unknown source. Follow-up blood cultures. Chest x-ray is unremarkable. UA with some RBC but only 5-10, no WBC, no compelling evidence for urinary tract infection. Will assess CT kidney stone protocol due to microscopic hematuria and sepsis. He does appear to have cellulitis around the pressure ulcer above the lateral right ankle with a ring of erythema and edema of about 8-10 cm around the ulcer. Ulcer itself does not appear to have tunneling or undermining, no purulent drainage. I do not appreciate fluctuance. Sacral ulcer with some shear injury, mild pressure bleeding, mild induration, no significant erythema apart from old erythema/discoloration, no necrosis or purulent drainage appreciated. Will additionally image with ultrasound soft tissue of the ankle and sacral wound to assess for any underlying abscess. Additionally with history of MS, multiple rounds of steroids in the past, hypotension, hyponatremia, discussed with him possibility of adrenal insufficiency. For now we will start on stress dose of cortisol, check random cortisol. Follow-up. De-escalate depending on results and condition. He is nonambulatory at baseline. With sinus tachycardia, hypotension, discussed with him possibility of VTE. Obtained and reviewed D-dimer, unremarkable, and he states he is on Xarelto 20 mg daily, low likelihood of PE. (2) Decubitus ulcer: Sacral and above lateral right ankle the lateral with surrounding rim of cellulitis. Antibiotics as above. Continue wound care. Further assess with ultrasound. Wound care. Plan MS: Received still once monthly infusion. Has had multiple rounds of steroids in the past. He is on gabapentin, diazepam. Requesting to confirm home medications. Restless leg syndrome: On ropinirole, continue once dose is given. Bedbound. Psychiatric history Goals of care discussion: In case of cardiopulmonary rest would want attempted resuscitation. Would be okay with temporary life support. In case could not make decisions for himself names his 3 children as surrogate decision makers. Requested home medications to be confirmed, please review and reconcile once available. Attestations 2 Medical Necessity Statement*: Admission of over 2 midnights anticipated for assessment management of sepsis with hypotension, transient altered mental status, further workup of possible sources, treatment of cellulitis around decubitus ulcer above the right ankle, possible adrenal insufficiency, initial man with underlying multiple sclerosis. Coding Level of Care Code Critical Care >/= 30 minutes Critical care time (in minutes): 35 The high probability of a clinically significant, sudden or life threatening deterioration, as referenced in this documentation, required my full and direct attention, intervention and personal management. The critical care time shown is in addition to time spent performing any reported separately billable procedures and includes the following: [x] Data and vital sign review and interpretation [x ] Patient assessment, examination and intervention [x] Medication orders and management [x] Patient/Family updates as able [x] Care Coordination and Documentation. Diagnoses Sepsis A41.9 Decubitus ulcer L89.90
[2023-10-06] MEDS: acetaminophen 500 mg Tablet 1000 MG PO (21:25)
--- NOTE | 2023-10-06 21:44 | PC.NURSE ---
Arrival to ICU: Pt arrived to ICU 2 @4 via stretcher from ER. Continuos Cardiac monitoring continued. Wounds noted on arrival: Pressure injury to the sacrum and R. Ankle.
--- NOTE | 2023-10-06 21:50 | CTR_ITS ---
PROCEDURE INFORMATION: Exam: CT Abdomen And Pelvis Without Contrast Exam date and time: 10/07/2023 12:52 AM Age: 63 years old Clinical indication: Abnormal findings; Abnormal lab test; Elevated wbc; Patient HX: Wbc of 23k with hematuria; Additional info: Sepsis TECHNIQUE: Imaging protocol: Computed tomography of the abdomen and pelvis without contrast. Radiation optimization: All CT scans at this facility use at least one of these dose optimization techniques: automated exposure control; mA and/or kV adjustment per patient size (includes targeted exams where dose is matched to clinical indication); or iterative reconstruction. COMPARISON: CR (CHEST, ) 10/06/2023 4:16 PM RADIATION DOSE METRICS: Total DLP (mGy-cm): 1672.58 FINDINGS: Lungs: Consolidation with air bronchograms in the right lung base atelectatic changes left lung base. Liver: Normal. No mass. Gallbladder and bile ducts: Normal. No calcified stones. No ductal dilation. Pancreas: Normal. No ductal dilation. Spleen: Normal. No splenomegaly. Adrenal glands: Normal. No mass. Kidneys and ureters: Normal. No hydronephrosis. Stomach and bowel: Unremarkable. No obstruction. No mucosal thickening. Appendix: No evidence of appendicitis. Intraperitoneal space: Unremarkable. No free air. No significant fluid collection. Vasculature: Atherosclerotic disease. Lymph nodes: Unremarkable. No enlarged lymph nodes. Urinary bladder: There is a Ojeda catheter in the bladder. The bladder is decompressed. Reproductive: Unremarkable as visualized. Bones/joints: Unremarkable. No acute fracture. Soft tissues: Unremarkable. CT/CT kidney stone [id number] IMPRESSION: 1. Consolidation with air bronchograms in the right lung base atelectatic changes left lung base. 2. No bowel obstruction or inflammatory process associated with the bowel. 3. No free air or significant free fluid in the abdomen or pelvis. 4. The appendix images normally.
[2023-10-06] MEDS: hydrocortisone 100 mg/2 mL SDV IVP (22:29)
[2023-10-06] MEDS: pantoprazole 40 mg SDV IVP (22:44)
[2023-10-06 23:32] LABS: Magnesium 1.8 mg/dL (1.7-2.3)
[2023-10-06 23:33] LABS: Cortisol Random 18.66 ug/dL (2.47-19.5)
[2023-10-07] VITALS (101 sets, daily range): BP systolic 78–135; BP diastolic 44–100; PULSE 52–91; RESP 9–33; TEMP 36.6–37.2; O2SAT 90–100
[2023-10-07] MEDS: albumin 25 G/100 ML BAG 60 G IV (00:07)
--- NOTE | 2023-10-07 00:31 | PC.NURSE ---
Low BP: Dr. Sears notified of low BP @approximately 2220. New order to preform Cheetah and for albumin. PLR preformed- SVI 54.8%. R. Leg is difficult to move, Dr. Sears aware.
[2023-10-07] MEDS: hydrocortisone 100 mg/2 mL SDV IVP ×2 (02:52→09:04)
[2023-10-07 05:05] LABS: Basophils % 0.2 %; Eosinophils % 0.2 %; Hematocrit 39.8 % (37-53); Lymphocytes # 0.5 10^3/uL (0.8-4.8); Lymphocytes % 2.7 %; Mean Corpuscular HGB Conc 32.7 g/dL (30-55); Mean Corpuscular Hemoglobin 29.1 pg (27-33); Mean Platelet Volume 8.7 fL (7.4-10.4); Monocytes # 0.4 10^3/uL (0.2-0.9); Monocytes % 1.9 %; Neutrophils # 18.01 10^3/uL (1.8-7.7); Neutrophils % 94.1 %; Nucleated Red Blood Cells % 0 %; Platelet Count 172 10^3/cmm (157-399); Red Blood Count 4.47 10^6/uL (3.85-5.65); Red Cell Distribution Width 13.3 % (12.1-15.1); White Blood Count 19.14 10^3/uL (3.29-11.43)
[2023-10-07 05:21] LABS: Alanine Aminotransferase 12 U/L (0-41); Albumin Level 3.5 g/dL (3.5-5.2); Alkaline Phosphatase 85 U/L (40-130); Aspartate Amino Transferase 14 U/L (0-40); Blood Urea Nitrogen 14 mg/dL (8-23); Calcium 8.3 mg/dL (8.5-10.5); Carbon Dioxide 23 mmol/L (22-29); Chloride 103 mmol/L (98-107); Globulin 2.3 g/dL (1.3-4.6); Glomerular Filtration Rate 67.6 mL/min (90-130); Glucose 196 mg/dL (65-115); Osmolality Calculated 284 mOsm/kg (285-295); Sodium 134 mmol/L (136-145); Total Bilirubin 0.6 mg/dL (0.15-1.2); Total Protein 5.8 g/dL (6.6-8.7)
[2023-10-07] MEDS: cefepime 2,000 MG in sodium chloride 0.9% (plus) 50 ML 100 MG IV ×2 (05:29→17:18)
--- NOTE | 2023-10-07 06:00 | USR_ITS ---
PROCEDURE INFORMATION: Exam: US Right Non-Vascular Joint or Other Extremity Structure Exam date and time: 10/07/2023 11:41 AM Age: 63 years old Clinical indication: Other: Wound RT gluteal region; Additional info: Assess for fluid collection TECHNIQUE: Imaging protocol: Right US joint or other nonvascular extremity structure or structures. Real-time ultrasound with image documentation. Limited study. Exam focused on the lower extremity in the region of clinical interest. COMPARISON: US soft tissue/extremity [id number] 10/07/2023 11:31 AM FINDINGS: Soft tissues: Unremarkable. No loculated collections. US/US soft tissue/extremity [id number] IMPRESSION: No fluid collections in the right gluteal region.
--- NOTE | 2023-10-07 06:00 | USR_ITS ---
PROCEDURE INFORMATION: Exam: US Right Non-Vascular Joint or Other Extremity Structure Exam date and time: 10/07/2023 11:31 AM Age: 63 years old Clinical indication: Other: Wound RT ankle; Additional info: Assess for fluid collection TECHNIQUE: Imaging protocol: Right US joint or other nonvascular extremity structure or structures. Real-time ultrasound with image documentation. Limited study. Exam focused on the lower extremity in the region of clinical interest. COMPARISON: CT kidney stone [id number] 10/07/2023 12:52 AM FINDINGS: Soft tissues: There is subcutaneous interstitial edema with no collections. US/US soft tissue/extremity [id number] IMPRESSION: No well-formed collection to suggest abscess formation.
[2023-10-07] MEDS: linezolid premix 600 MG/300 ML PREMIX 300 MG IV ×2 (06:04→18:05)
[2023-10-07] MEDS: acetaminophen 325 mg Tablet 650 MG PO (06:08)
[2023-10-07] MEDS: enoxaparin 100 mg/mL Syringe 90 MG SUBCUT ×2 (06:13→18:06)
[2023-10-07 09:50] LABS: Erythrocyte Sedimentation Rate 17 mm/hr (0-10)
[2023-10-07 10:04] LABS: Procalcitonin 2.54 ng/mL (0-0.5)
[2023-10-07 10:27] LABS: Adenovirus Not Detected (NOT DETECT); Chlamydia Pneumoniae Not Detected (NOT DETECT); Coronavirus 229E,HKU1,NL63,OC4 Not Detected (NOT DETECT); Human Metapneumovirus Not Detected (NOT DETECT); Human Rhinovirus/Enterovirus Not Detected (NOT DETECT); Influenza A Not Detected (NOT DETECT); Influenza A H1 Not Detected (NOT DETECT); Influenza A H1-2009 Not Detected (NOT DETECT); Influenza A H3 Not Detected (NOT DETECT); Influenza B Not Detected (NOT DETECT); Mycoplasma Pneumoniae Not Detected (NOT DETECT); Parainfluenza Virus Type 1 Not Detected (NOT DETECT); Parainfluenza Virus Type 2 Not Detected (NOT DETECT); Parainfluenza Virus Type 3 Not Detected (NOT DETECT); Parainfluenza Virus Type 4 Not Detected (NOT DETECT); Respiratory Syncytial Virus A Not Detected (NOT DETECT); Respiratory Syncytial Virus B Not Detected (NOT DETECT); SARS-COV-2 Not Detected (NOT DETECT)
--- NOTE | 2023-10-07 11:04 | P.PN_ITS ---
Vitals/I&O/Wt Last Vital Signs Temp 98.4 F 10/07/23 07:43 Pulse 88 10/07/23 10:15 Resp 19 H 10/07/23 10:00 BP 118/72 10/07/23 10:00 Pulse Ox 95 10/07/23 10:15 O2 Del Method Nasal Cannula 10/07/23 10:15 O2 Flow Rate 4 10/07/23 10:15 10/06/23 10/07/23 10/07/23 22:59 06:59 14:59 Intake Total 4575 / 4575 500 / 5075 900 / 900 Output Total 175 / 175 2200 / 2375 Balance 4400 / 4400 -1700 / 2700 900 / 900 Weight last 48 hrs Weight 92.986 kg Weight 92.079 kg Weight 86.183 kg Physical Exam 2 Const: COMMON NORMALS: no acute distress and patient oriented x3 Resp: COMMON NORMALS: normal respiratory effort, No retractions, No use of accessory muscles and clear to auscultation bilaterally AUSCULTATION: clear to auscultation bilaterally Cardio: COMMON NORMALS: regular rate, regular rhythm, S1 normal heart sound present and S2 normal heart sound present RATE: regular rate RHYTHM: r egular rhythm HEART SOUNDS: S1 normal heart sound present and S2 normal heart sound present GI: COMMON NORMALS: Normal to inspection, nondistended, normoactive bowel sounds present, non-tender and No hepatosplenomegaly present PALPATION: Yes No hepatosplenomegaly present Extremity: COMMON NORMALS: no pedal edema Neuro: COMMON NORMALS: patient oriented x3 Psych: COMMON NORMALS: mental status grossly normal Urinary Catheter Management: Ojeda: Cath Placed During This Visit: yes Reason for Continuing Indwelling Catheter: Accurate Measurement of Urinary Output in Critically Ill Patients Urinary Catheter Date of Insertion: 10/06/23 Urinary Catheter Time of Insertion: 22:03 Data 10/07/23 04:26 10/07/23 04:26 Micro: Microbiology 10/06/23 17:35 Blood Culture - Preliminary Blood SPECIMEN COLLECTED 10/06/23 17:32 Blood Culture - Preliminary Blood SPECIMEN COLLECTED A&P Assessment and plan (1) Sepsis: - Sepsis -Likely secondary to sacral decubitus ulcer -On examination sacral decubitus ulcer, over right buttocks, measures 3 x 3 cm stage II -Also ulcer over right ankle -ESR, CRP, Pro-[place]ville we will decide on further imaging based on clinical progress -Continue to reposition, offloading, reposition every 2 hours -Continue Zyvox, cefepime -Will wean hydrocortisone due to concerns for adrenal insufficiency -Started on therapeutic Lovenox as patient takes Xarelto at home, hold p.o. Xarelto as if patient needs any type of surgical debridement, continue IV therapeutic Lovenox will do venous ultrasound for DVT bilateral extremities -Patient is on 4 L does not use oxygen at home, chest x-ray no focal pneumonia, will order CT angiogram of the chest (2) Decubitus ulcer: Sacral and above lateral right ankle the lateral with surrounding rim of cellulitis. Antibiotics as above. Continue wound care. Further assess with ultrasound. Wound care. Plan MS: Received still once monthly infusion. Has had multiple rounds of steroids in the past. He is on gabapentin, diazepam. Requesting to confirm home medications. Restless leg syndrome: On ropinirole, continue once dose is given. Bedbound. Psychiatric history Currently patient hypoxic on 4 L, is immobile, venous ultrasound and CT angiogram of the chest, troponin series Goals of care discussion: In case of cardiopulmonary rest would want attempted resuscitation. Would be okay with temporary life support. In case could not make decisions for himself names his 3 children as surrogate decision makers. Requested home medications to be confirmed, please review and reconcile once available. Attestations 2 Medical Necessity Statement*: Patient requires hospitalization for sepsis secondary to sacral decubitus ulcer, ankle ulcer, Diagnoses Sepsis A41.9 Decubitus ulcer L89.90
--- NOTE | 2023-10-07 11:07 | USR_ITS ---
PROCEDURE INFORMATION: Exam: US Duplex Lower Extremity Veins, Bilateral Exam date and time: 10/07/2023 3:54 PM Age: 63 years old Clinical indication: Swelling (edema) of limb; Lower extremity, bilateral TECHNIQUE: Imaging protocol: Real-time duplex ultrasound of the bilateral extremities with 2-D watters scale, color Doppler flow and spectral waveform analysis including responses to compression and other maneuvers (when performed) with image documentation. Complete exam focused on the lower extremity veins. COMPARISON: US soft tissue/extremity [id number] 10/07/2023 11:41 AM FINDINGS: Right deep veins: Unremarkable. The common femoral, femoral, proximal profunda femoral and popliteal veins are patent without thrombus. Normal Doppler waveforms. Normal compressibility and/or augmentation response. Left deep veins: Unremarkable. The common femoral, femoral, proximal profunda femoral and popliteal veins are patent without thrombus. Normal Doppler waveforms. Normal compressibility and/or augmentation response. Superficial veins: Bilateral saphenofemoral junctions are patent without thrombus. Soft tissues: Unremarkable. US/[place] [id number] IMPRESSION: No evidence of deep vein thrombosis.
--- NOTE | 2023-10-07 11:07 | CTR_ITS ---
PROCEDURE INFORMATION: Exam: CTA Chest With Contrast Exam date and time: 10/07/2023 3:00 PM Age: 63 years old Clinical indication: Shortness of breath; Additional info: Hypoxia, sepsis TECHNIQUE: Imaging protocol: Computed tomographic angiography of the chest with contrast. Exam focused on the arteries. 3D rendering (Not supervised by radiologist): MIP and/or 3D reconstructed images were created by the technologist. Radiation optimization: All CT scans at this facility use at least one of these dose optimization techniques: automated exposure control; mA and/or kV adjustment per patient size (includes targeted exams where dose is matched to clinical indication); or iterative reconstruction. Contrast material: OMNI 350; Contrast volume: 69 ml; Contrast route: INTRAVENOUS (IV); COMPARISON: CR (CHEST, ) 10/06/2023 4:16 PM RADIATION DOSE METRICS: Total DLP (mGy-cm): 415.92 FINDINGS: Pulmonary arteries: Normal. No pulmonary emboli. Aorta: Unremarkable. No aortic aneurysm. No aortic dissection. Lungs: There is bilateral lower lobe atelectasis. There are right lower lobe infiltrates. Pleural spaces: There are bilateral small pleural effusions. Heart: Unremarkable. No cardiomegaly. No pericardial effusion. Lymph nodes: Unremarkable. No enlarged lymph nodes. Bones/joints: There is a curvature of the thoracolumbar spine convex to the right. Soft tissues: Unremarkable. Other findings: There are vascular calcifications. CT/CT angio chest PE protcl [id number] IMPRESSION: 1. No pulmonary embolism. 2. Right lower lobe infiltrates with an associated small right pleural effusion, representing pneumonia.
--- NOTE | 2023-10-07 12:12 | ECG_ITS ---
[facility] Test Date: 2023-10-07 Pat Name: Eldon Tristan Department: Room: ICU02 Gender: Male Associate Dean Of Women: : 1960 Requested By: Wilmer Sierra Order Number: [id number] Meena MD: Mike Pham M.D. Measurements Intervals [place] Rate: 71 P: 45 NV: 171 QRS: -11 QRSD: 106 T: 78 QT: 376 QTc: 410 Interpretive Statements SINUS RHYTHM Compared to ECG 10/06/2023 16:06:27 Sinus tachycardia no longer present Left-axis deviation no longer present Electronically Signed On 10-07-2023 18:03:14 CATERING DRIVER by Mike Pham M.D. [email or web address]
[2023-10-07 13:36] LABS: Troponin(5th) Baseline 19 ng/L (0-15)
[2023-10-07] MEDS: ropinirole 2 mg Tablet 12 MG PO (13:57)
[2023-10-07] MEDS: diazePAM 2 mg Tablet PO (14:02)
[2023-10-07] MEDS: diphenhydrAMINE 50 mg/mL SDV 1mL 25 MG IVP (14:39)
[2023-10-07] MEDS: iohexol 350 mg/mL 500 mL Btl (per mL) IV (15:09)
[2023-10-07 15:25] LABS: Troponin 5 2HR 17.35 ng/L (0-15)
[2023-10-07 15:26] LABS: Troponin 5 2HR Delta -1.65 ABS# (0-10)
[2023-10-07 20:00] LABS: Troponin 5 6HR 16.07 ng/L (0-15)
[2023-10-07 20:03] LABS: Troponin 5 6HR Delta -2.93 ng/L (0-12)
[2023-10-07] MEDS: pantoprazole 40 mg SDV IVP (21:53)
[2023-10-07] MEDS: HYDROcodone-acetaminophen 5-325 mg Tablet 1 TAB PO (23:27)
[2023-10-08] VITALS (81 sets, daily range): BP systolic 97–163; BP diastolic 50–93; PULSE 56–85; RESP 12–26; TEMP 36.7–37.4; O2SAT 89–98
[2023-10-08 04:57] LABS: Basophils % 0.3 %; Eosinophils # 0.1 10^3/uL (0.0-0.8); Eosinophils % 0.5 %; Hematocrit 36.8 % (37-53); Lymphocytes # 0.9 10^3/uL (0.8-4.8); Mean Corpuscular HGB Conc 32.9 g/dL (30-55); Mean Corpuscular Hemoglobin 29.4 pg (27-33); Mean Corpuscular Volume 89.3 fl (82-101); Mean Platelet Volume 9.2 fL (7.4-10.4); Monocytes # 1.2 10^3/uL (0.2-0.9); Monocytes % 11.9 %; Neutrophils # 7.96 10^3/uL (1.8-7.7); Nucleated Red Blood Cells % 0 %; Platelet Count 169 10^3/cmm (157-399); Red Blood Count 4.12 10^6/uL (3.85-5.65); Red Cell Distribution Width 13.5 % (12.1-15.1)
[2023-10-08 05:20] LABS: Alanine Aminotransferase 13 U/L (0-41); Albumin Level 3.1 g/dL (3.5-5.2); Alkaline Phosphatase 70 U/L (40-130); Anion Gap 12.6 (5-19); Aspartate Amino Transferase 17 U/L (0-40); Blood Urea Nitrogen 14 mg/dL (8-23); Calcium 8.3 mg/dL (8.5-10.5); Carbon Dioxide 23 mmol/L (22-29); Chloride 108 mmol/L (98-107); Globulin 2.4 g/dL (1.3-4.6); Glomerular Filtration Rate 75.5 mL/min (90-130); Glucose 114 mg/dL (65-115); Osmolality Calculated 291 mOsm/kg (285-295); Potassium 3.6 mmol/L (3.5-5.1); Sodium 140 mmol/L (136-145); Total Bilirubin 0.2 mg/dL (0.15-1.2); Total Protein 5.5 g/dL (6.6-8.7)
[2023-10-08] MEDS: ropinirole 2 mg Tablet 12 MG PO (06:01)
[2023-10-08] MEDS: acetaminophen 325 mg Tablet 650 MG PO (06:01)
[2023-10-08] MEDS: cefepime 2,000 MG in sodium chloride 0.9% (plus) 50 ML 100 MG IV ×2 (06:02→17:28)
[2023-10-08] MEDS: linezolid premix 600 MG/300 ML PREMIX 300 MG IV ×2 (06:02→18:05)
[2023-10-08] MEDS: enoxaparin 100 mg/mL Syringe 90 MG SUBCUT ×2 (06:03→18:04)
[2023-10-08] MEDS: ropinirole 2 mg Tablet 4 MG PO ×3 (07:58→18:53)
[2023-10-08] MEDS: hydrocortisone 100 mg/2 mL SDV 25 MG IVP (07:59)
--- NOTE | 2023-10-08 10:29 | PC.NURSE ---
pt stated, i threw my phone in the trash. He then asked, could you get it out of the trash, so i can dunk it in water? When asked why, he stated because someone always hacks it, even when i get a new 1.
--- NOTE | 2023-10-08 14:10 | P.PN_ITS ---
Subjective 2 Subjective: Patient reports ongoing shortness of breath and cough. Reports his restless leg symptoms are severe. He is usually on long-acting Requip which is not available. He is agreeable to increasing the short acting dosing for now. Denies nausea or vomiting. Medications: Reviewed: Yes Vitals/I&O/Wt Last Vital Signs Temp 99.0 F 10/08/23 12:00 Pulse 63 10/08/23 13:30 Resp 16 10/08/23 13:30 BP 157/83 10/08/23 13:30 Pulse Ox 96 10/08/23 13:30 O2 Del Method Nasal Cannula 10/08/23 07:55 O2 Flow Rate 2 10/08/23 07:55 10/07/23 10/08/23 10/08/23 22:59 06:59 14:59 Intake Total 950 / 2330 50 / 2380 780 / 780 Output Total 300 / 2150 450 / 2600 Balance 650 / 180 -400 / -220 780 / 780 Weight last 48 hrs Weight 91.371 kg Weight 92.986 kg Weight 92.079 kg Weight 86.183 kg Physical Exam 2 Narrative: General: Patient is awake. Very pleasant. Appears fatigued. Head: Normocephalic. Atraumatic. EOM intact. Neck: No JVD. Cardiovascular: RRR. No gallops. No murmurs. No peripheral edema. Lungs: Right basilar rhonchi, no use of accessory muscles, no crackles or wheezes. On 2 L nasal cannula support. Skin: No jaundice. Pressure injury on ankle and sacral injury as well. Abdomen: Normal bowel sounds, abdomen soft and nontender. Genito Urinary: Genital exam not performed since complaints not related. Rectal: Rectal exam not performed since no symptoms indicated blood loss. Extremities: No cyanosis or clubbing. Musculoskeletal: No swollen or erythematous joints. Neurological: No myoclonus. Urinary Catheter Management: Ojeda: Cath Placed During This Visit: yes Reason for Continuing Indwelling Catheter: Accurate Measurement of Urinary Output in Critically Ill Patients Urinary Catheter Date of Insertion: 10/06/23 Urinary Catheter Time of Insertion: 22:03 Data 10/08/23 04:00 10/08/23 04:00 Micro: Microbiology 10/06/23 17:35 Blood Culture - Preliminary Blood NEGATIVE TO DATE 10/06/23 17:32 Blood Culture - Preliminary Blood NEGATIVE TO DATE A&P Assessment and plan (1) Sepsis: (2) Multiple sclerosis: (3) Restless leg: (4) Decubitus ulcer: (5) Anxiety and depression: Plan Sepsis secondary right lower lobe community-acquired pneumonia with parapneumonic effusion -Septic shock is now resolved, Levophed is off -Reduce stress dose steroids, can likely discontinue on Sunday -Continue Zyvox, await till cultures are negative for 48 hours then consider discontinuing -Continue cefepime -Follow cultures -Strict I's and O's and daily weights Sacral decubitus ulcer Right ankle ankle ulcer -Both present on admission -Imaging reviewed, no evidence of abscess -Routine wound care Multiple sclerosis Nonambulatory at baseline -Continue monthly injections -Schedule Valium and as needed -Continue home gabapentin -Continue home analgesics Restless leg syndrome -Usually on long-acting Requip, not available -Will increase short acting -Monitor for side effects Anxiety/depression -Continue home meds 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 Coding Level of Care Code Acute Code for [facility] Diagnoses Sepsis A41.9 Multiple sclerosis G35 Restless leg G25.81 Decubitus ulcer L89.90 Anxiety and depression F41.9; F32.9
--- NOTE | 2023-10-08 15:09 | PC.SOCIAL ---
IMM Update pg 2 of IMM updated and reviewed w/ patient. Copy provided and copy dated, initialed and placed in chart.
[2023-10-08] MEDS: gabapentin 300 mg Capsule PO (17:28)
[2023-10-08] MEDS: diazePAM 5 mg Tablet PO (20:50)
[2023-10-08] MEDS: pantoprazole 40 mg SDV IVP (20:50)
[2023-10-08] MEDS: atorvastatin 40 mg Tablet PO (20:50)
[2023-10-09] MEDS: HYDROcodone-acetaminophen 5-325 mg Tablet 1 TAB PO (00:12)
[2023-10-09] MEDS: ropinirole 2 mg Tablet 4 MG PO ×3 (01:03→12:12)
[2023-10-09 04:54] VITALS: PULSE 69
[2023-10-09 04:55] VITALS: BP 122/72; PULSE 69; RESP 18; TEMP 37.2; O2SAT 96
[2023-10-09] MEDS: cefepime 2,000 MG in sodium chloride 0.9% (plus) 50 ML 100 MG IV (05:14)
[2023-10-09 05:38] LABS: Basophils # 0.1 10^3/uL (0.0-0.1); Basophils % 0.7 %; Eosinophils # 0.1 10^3/uL (0.0-0.8); Hematocrit 39.3 % (37-53); Lymphocytes # 1.1 10^3/uL (0.8-4.8); Lymphocytes % 13.7 %; Mean Corpuscular HGB Conc 33.3 g/dL (30-55); Mean Corpuscular Hemoglobin 29.8 pg (27-33); Mean Corpuscular Volume 89.3 fl (82-101); Mean Platelet Volume 9.2 fL (7.4-10.4); Monocytes % 12.4 %; Neutrophils % 71.9 %; Nucleated Red Blood Cells % 0 %; Platelet Count 182 10^3/cmm (157-399); Red Cell Distribution Width 13.3 % (12.1-15.1); White Blood Count 7.65 10^3/uL (3.29-11.43)
[2023-10-09 06:11] LABS: Alanine Aminotransferase 14 U/L (0-41); Albumin Level 3.3 g/dL (3.5-5.2); Alkaline Phosphatase 85 U/L (40-130); Anion Gap 13.6 (5-19); Aspartate Amino Transferase 17 U/L (0-40); Blood Urea Nitrogen 10 mg/dL (8-23); Calcium 8.3 mg/dL (8.5-10.5); Carbon Dioxide 26 mmol/L (22-29); Chloride 105 mmol/L (98-107); Globulin 2.4 g/dL (1.3-4.6); Glomerular Filtration Rate 75.5 mL/min (90-130); Glucose 85 mg/dL (65-115); Osmolality Calculated 290 mOsm/kg (285-295); Potassium 3.6 mmol/L (3.5-5.1); Sodium 141 mmol/L (136-145); Total Bilirubin 0.2 mg/dL (0.15-1.2); Total Protein 5.7 g/dL (6.6-8.7)
[2023-10-09] MEDS: hydrocortisone 100 mg/2 mL SDV 25 MG IVP (06:15)
[2023-10-09] MEDS: enoxaparin 100 mg/mL Syringe 90 MG SUBCUT (06:16)
[2023-10-09] MEDS: linezolid premix 600 MG/300 ML PREMIX 300 MG IV (06:16)
[2023-10-09] MEDS: diazePAM 2 mg Tablet PO (06:18)
[2023-10-09] MEDS: gabapentin 300 mg Capsule PO (07:58)
[2023-10-09 08:00] VITALS: BP 129/73; PULSE 76; RESP 16; TEMP 36.8; O2SAT 91
[2023-10-09 11:00] VITALS: PULSE 78; O2SAT 92
[2023-10-09 11:47] VITALS: BP 116/73; PULSE 76; RESP 16; TEMP 36.6; O2SAT 91
--- NOTE | 2023-10-09 12:58 | P.DS_ITS ---
Discharge Providers Date of Admission: 10/06/23 19:56 Date of Discharge: October 09, 2023 Attending Provider at Admission: Kamran Sears Attending Provider at Discharge: Isatu Kline MD Diagnoses at Discharge Discharge Diagnosis (1) Sepsis: Status: Resolved (2) Multiple sclerosis: Status: Inactive Permanent problem details: MS diagnosed at 31 years of age but became symptomatic at age 29 (3) Restless leg: Status: Inactive (4) Decubitus ulcer: Status: Acute (5) Anxiety and depression: Status: Inactive Reason for Visit Reason for Visit: N/V Hospital Course Hospital Course Per the HPI, Mr. Tristan is a Pleasant 63-year-old gentleman with history of MS, [facility] resident, remote history of bacteremia he states of unclear source, decubitus ulcer on sacrum and right ankle, on chronic anticoagulation, he states since being on anticoagulant has not had any further issues with blood clots, he is nonambulatory at baseline, does not have a chronic Ojeda or other medical devices. Was brought in from group home for evaluation to ER due to altered mental status, malaise, fever 105. Reports had 1 episode of vomiting without recurrence, not nauseated currently. He is malaise, with diffuse bodyaches, sweats, chills. States he feels similarly to how he was at the time he was diagnosed with bacteremia in the past. Has mild chronic cough with minimal sputum which is not new. Denies chest pain or pressure. No diarrhea. In ER with sinus tachycardia, hypotension, blood pressure down to 86/65 leukocytosis 20.21. EKG with sinus tachycardia, LAD. Chest x-ray without acute findings. Urinalysis with minimal RBC, WBC. Trace leukocyte esterase. With suspected sepsis received 3 L fluid boluses due to hypotension, blood cultures collected, received cefepime, linezolid. He was admitted for Septic shock right lower lobe community-acquired pneumonia with parapneumonic effusion requiring Norepinephrine and stress dose steroids. He was continued on Cefepime and Linezolid on admission. He defervesced, so he was transferred to the floor. His BCx were negative on the day of discharge, so he was discharged w/ Augumentin to complete a 7 day course. On 10/11/2023, the rn case mgr was informed that the patient's BCx was positive in one out of 4 bottles. Given that the results were still preliminary, the decision was made to wait until the BCx speciated and was finalized. The patient's BCx was positive for Grp G/Grp C strep on 10/14/2023, all sensitive to Penicillin. I spoke with the Hospitalist Service medical record assistant who plans to assist in coordinating to ensure that the patient gets repeat BCx and 7 more days of Augme ntin BID for a 2 weeks course #Septic shock secondary right lower lobe community-acquired pneumonia with parapneumonic effusion #Group G & C Strep Bacteremia #Sacral decubitus ulcer #Right ankle ankle ulcer -Both present on admission -Imaging reviewed, no evidence of abscess -Routine wound care #Multiple sclerosis Nonambulatory at baseline -Continue monthly injections -Schedule Valium and as needed -Continue home gabapentin -Continue home analgesics #Restless leg syndrome -Usually on long-acting Requip, not available #Anxiety/depression #History of VTE: On Xarelto at home Physical Exam Const: GENERAL APPEARANCE: cooperative and comfortable ORIENTATION/CONSCIOUSNESS: Yes awake, Yes oriented to person, Yes oriented to place and Yes oriented to time HENMT: COMMON NORMALS: normocephalic, atraumatic, external ears normal and Normal external nose present HEAD & SCALP: normocephalic and atraumatic FACE & SINUS: normal facial exam NOSE: Normal external nose present EXTERNAL EAR: Yes external ears normal MOUTH: Normal oral and palatal mucosa present THROAT: posterior oropharynx normal Eye: COMMON NORMALS: Equal, round and reactive pupils present and conjunctivae normal CONJUNCTIVA: Yes conjunctivae normal PUPIL: Yes Equal, round and reactive pupils present EOM: No EOM abnormal Neck/C-Spine: COMMON NORMALS: Thyroid normal GENERAL: Yes normal visual inspection and Yes trachea midline THYROID: Thyroid normal CAROTIDS: No bruit CERVICAL SPINE: Yes cervical ROM normal Lymph: LYMPHATIC: No lymphadenopathy Resp: OTHER: CTAB anteriorly w/ no w/r/r Cardio: OTHER: RRR, no m/r/g/clicks. GI: OTHER: BS+, non-tender, non-distended, no guarding, no rigidity, no rebound tenderness, no hepatosplenomegaly Extremity: NARRATIVE EXTREMITY EXAM: R. lower extremity contracture at the knee. I did not evaluate the sacrum. GENERAL: No clubbing, No cyanosis and No edema Neuro: SENSORIUM/ORIENTATION: Yes oriented to person, Yes oriented to place and Yes oriented to time CRANIAL NERVES: Yes CN normal except as noted SPEECH: speech normal Psych: COMMON NORMALS: Normal thought process present and speech normal APPEARANCE: Yes grossly normal ATTITUDE: Yes calm and Yes engaged ACTIVITY/MOTOR BEHAVIOR: Yes appropriate eye contact SPEECH: Yes normal speech MOOD & AFFECT: Yes euthymic mood THOUGHT PROCESS: Normal thought process present THOUGHT CONTENT: Yes Normal thought content present ATTENTION/CONCENTRATION: Yes attention grossly intact Skin: NARRATIVE SKIN EXAM: Stage II ulcer in the R. lateral malleolus Urinary Catheter Management: Ojeda: Cath Placed During This Visit: yes, but has since been removed by the nurse Reason for Continuing Indwelling Catheter: Accurate Measurement of Urinary Output in Critically Ill Patients Urinary Catheter Date of Insertion: 10/06/23 Urinary Catheter Time of Insertion: 22:03 Date Urinary Catheter Removed: 10/09/23 Time Urinary Catheter Discontinued: 10:05 Discharge Data Studies Completed and Pending Completed Studies During Hospitalization Category Date Time Status CT abdomen renal stone [CT kidney stone [id number]] Routine Cat Scan 10/06/23 21:[address] angio chest PE protcl [id number] Routine Cat Scan 10/07/23 11:07 Completed XR chest 1V [id number] Stat Exams 10/06/23 15:54 [place] [id number] Routine Ultrasound 10/07/23 11:07 Completed US soft tissue/extremity [id number] Routine Ultrasound 10/07/23 06:00 Completed US soft tissue/extremity [id number] Routine Ultrasound 10/07/23 06:00 Completed Pending at discharge Category Date Time Status Blood Culture Stat Lab 10/06/23 17:35 Results Radiology Impressions Chest X-Ray 10/06/23 15:54 IMPRESSION: No acute findings. Abdomen/Pelvis CT 10/06/23 21:50 IMPRESSION: 1. Consolidation with air bronchograms in the right lung base atelectatic changes left lung base. 2. No bowel obstruction or inflammatory process associated with the bowel. 3. No free air or significant free fluid in the abdomen or pelvis. 4. The appendix images normally. Soft Tissue Ultrasound 10/07/23 06:00 IMPRESSION: No fluid collections in the right gluteal region. Chest CTA 10/07/23 11:07 IMPRESSION: 1. No pulmonary embolism. 2. Right lower lobe infiltrates with an associated small right pleural effusion, representing pneumonia. Venous Duplex 10/07/23 11:07 IMPRESSION: No evidence of deep vein thrombosis. Laboratory Results WBC 7.65 10^3/uL (3.29-11.43) 10/09/23 04:38 RBC 4.40 10^6/uL (3.85-5.65) 10/09/23 04:38 Hgb 13.10 g/dL (11.27-16.99) 10/09/23 04:38 Hct 39.3 % (37-53) 10/09/23 04:38 MCV 89.3 fl (82-101) 10/09/23 04:38 MCH 29.8 pg (27-33) 10/09/23 04:38 MCHC 33.3 g/dL (30-55) 10/09/23 04:38 RDW 13.3 % (12.1-15.1) 10/09/23 04:38 Plt Count 182 10^3/cmm (157-399) 10/09/23 04:38 MPV 9.2 fL (7.4-10.4) 10/09/23 04:38 Neut % (Auto) 71.9 % 10/09/23 04:38 Lymph % (Auto) 13.7 % 10/09/23 04:38 [place] % (Auto) 12.4 % 10/09/23 04:38 Eos % (Auto) 1.0 % 10/09/23 04:38 Baso % (Auto) 0.7 % 10/09/23 04:38 Neut # (Auto) 5.50 10^3/uL (1.8-7.7) 10/09/23 04:38 Lymph # (Auto) 1.1 10^3/uL (0.8-4.8) 10/09/23 04:38 [place] # (Auto) 1.0 10^3/uL (0.2-0.9) H 10/09/23 04:38 Eos # (Auto) 0.1 10^3/uL (0.0-0.8) 10/09/23 04:38 Baso # (Auto) 0.1 10^3/uL (0.0-0.1) 10/09/23 04:38 Nucleated RBC % (auto) 0 % 10/09/23 04:38 Nucleated RBCs # 0.0 /100WBC 10/09/23 04:38 ESR 17 mm/hr (0-10) H 10/07/23 04:26 D-Dimer 0.37 ug/mLFEU (0-0.59) 10/06/23 17:32 Sodium 141 mmol/L (136-145) 10/09/23 04:38 Potassium 3.6 mmol/L (3.5-5.1) 10/09/23 04:38 Chloride 105 mmol/L (98-107) 10/09/23 04:38 Carbon Dioxide 26 mmol/L (22-29) 10/09/23 04:38 Anion Gap 13.6 (5-19) 10/09/23 04:38 BUN 10 mg/dL (8-23) 10/09/23 04:38 Creatinine 1.0 mg/dL (0.7-1.2) 10/09/23 04:38 GFR Calculation 75.5 mL/min (90-130) L 10/09/23 04:38 Glucose 85 mg/dL (65-115) 10/09/23 04:38 Calculated Osmolality 290 mOsm/kg (285-295) 10/09/23 04:38 Lactic Acid 1.4 mmol/L (0.5-2.2) 10/06/23 17:32 Calcium 8.3 mg/dL (8.5-10.5) L 10/09/23 04:38 Magnesium 1.8 mg/dL (1.7-2.3) 10/06/23 22:39 Total Bilirubin 0.2 mg/dL (0.15-1.2) 10/09/23 04:38 AST 17 U/L (0-40) 10/09/23 04:38 ALT 14 U/L (0-41) 10/09/23 04:38 Alkaline Phosphatase 85 U/L (40-130) 10/09/23 04:38 Troponin T Baseline 19 ng/L (0-15) H 10/07/23 12:43 Troponin T 120 Minute 17.35 ng/L (0-15) H 10/07/23 14:34 Delta Troponin T -1.65 ABS# (0-10) L 10/07/23 14:34 Troponin T Hi Sens 6Hr 16.07 ng/L (0-15) H 10/07/23 18:20 Troponin T Hi Sens 6Hr Delta -2.93 ng/L (0-12) L 10/07/23 18:20 C-Reactive Protein 44.9 mg/L (0.0-4.9) H 10/06/23 17:32 Total Protein 5.7 g/dL (6.6-8.7) L 10/09/23 04:38 Albumin 3.3 g/dL (3.5-5.2) L 10/09/23 04:38 Globulin 2.4 g/dL (1.3-4.6) 10/09/23 04:38 Procalcitonin 2.54 ng/mL (0-0.5) H 10/07/23 04:26 Random Cortisol 18.66 ug/dL (2.47-19.5) 10/06/23 17:32 Urine Color Yellow (Yellow) 10/06/23 19:17 Urine Appearance Clear (CLEAR) 10/06/23 19:17 Urine pH 7 (5-7) 10/06/23 19:17 Ur Specific [place] 1.000 (1.005-1.030) L 10/06/23 19:17 Urine Protein Trace (Negative) 10/06/23 19:17 Urine Glucose (UA) Norm (Normal) 10/06/23 19:17 Urine Ketones Negative (Negative) 10/06/23 19:17 Urine Blood 2+ (Negative) H 10/06/23 19:17 Urine Nitrate Negative (Negative) 10/06/23 19:17 Urine Bilirubin Neg (Negative) 10/06/23 19:17 Urine Urobilinogen Norm mg/dL (Negative) 10/06/23 19:17 Ur Leukocyte Esterase Trace (Negative) H 10/06/23 19:17 Urine RBC 5-10 /hpf (0-2) H 10/06/23 19:17 Urine WBC 0-4 /hpf (0-5) H 10/06/23 19:17 Ur Squamous Epith Cells 0-4 /hpf (0-5) H 10/06/23 19:17 Amorphous Sediment Not Reportable 10/06/23 19:17 Urine Bacteria Trace /hpf (NONE) 10/06/23 19:17 Urine Mucus Trace /hpf 10/06/23 19:17 Adenovirus (PCR) Not detected (NOT DETECT) 10/07/23 08:35 C. pneumoniae DNA (PCR) Not detected (NOT DETECT) 10/07/23 08:35 Coronavirus 229E (PCR) Not detected (NOT DETECT) 10/07/23 08:35 Human Metapneumovir PCR Not detected (NOT DETECT) 10/07/23 08:35 Influenza A (H1) PCR Not detected (NOT DETECT) 10/07/23 08:35 Influ A (H1/09) PCR Not detected (NOT DETECT) 10/07/23 08:35 Influenza A (H3) PCR Not detected (NOT DETECT) 10/07/23 08:35 Influenza Type A Ag negative (Negative) 10/06/23 16:08 Influenza Type A (PCR) Not detected (NOT DETECT) 10/07/23 08:35 Influenza Type B Ag negative (Negative) 10/06/23 16:08 Influenza Type B (PCR) Not detected (NOT DETECT) 10/07/23 08:35 M. pneumoniae (PCR) Not detected (NOT DETECT) 10/07/23 08:35 Parainfluenza 1 (PCR) Not detected (NOT DETECT) 10/07/23 08:35 Parainfluenza 2 (PCR) Not detected (NOT DETECT) 10/07/23 08:35 Parainfluenza 3 (PCR) Not detected (NOT DETECT) 10/07/23 08:35 Parainfluenza 4 (PCR) Not detected (NOT DETECT) 10/07/23 08:35 RSV Type A (PCR) Not detected (NOT DETECT) 10/07/23 08:35 RSV Type B (PCR) Not detected (NOT DETECT) 10/07/23 08:35 Entero/Rhino (PCR) Not detected (NOT DETECT) 10/07/23 08:35 SARS-CoV-2 (PCR) Not detected (NOT DETECT) 10/07/23 08:35 SARS-CoV-2 Ag (Rapid) negative (Negative) 10/06/23 16:08 Vitals Last Vital Signs Temp 97.8 F 10/09/23 11:47 Pulse 76 10/09/23 11:47 Resp 16 10/09/23 11:47 BP 116/73 10/09/23 11:47 Pulse Ox 91 10/09/23 11:47 O2 Del Method Nasal Cannula 10/09/23 11:47 O2 Flow Rate 2 10/08/23 21:39 Discharge Plan Discharge Patient Disposition: Xfer SNF Condition: Stable Prescriptions: New amoxicillin-pot clavulanate 875-125 mg tablet 1 tab PO Q12H Qty: 9 0RF Continued (DME) Motorized Wheelchair Qty: 1 0RF Rx Instructions: As directed acetaminophen 325 mg Tablet 650 mg PO Q6H PRN (Reason: pain/elevated temp) hydrocodone-acetaminophen 5-325 mg Tablet 1 tab PO Q6H PRN (Reason: Pain) Milk of Magnesia 400 mg/5 mL Suspension 30 ml PO DAILY PRN (Reason: Constipation) diazepam 2 mg tablet 2 mg PO Q8H PRN (Reason: anxiety/muscle spasm) gabapentin 300 mg capsule 300 mg PO BID [place]paro[place] 200-200-20 mg/5 mL Suspension 30 ml PO Q6H PRN (Reason: gi upset) Rx Instructions: administer between meals and at bedtime Miralax 17 gram/dose Powder 17 g PO DAILY PRN (Reason: Constipation) naloxone 1 mg/mL Syringe 2 mg IM PRN PRN (Reason: opiate overdose) Rx Instructions: NTExceed 10 mg total dose/episode rosuvastatin 10 mg tablet 10 mg PO BEDTIME Vitamin D3 25 mcg (1,000 unit) Tablet 25 mcg PO QAM ropinirole 12 mg Tablet Extended Release 24 Hr 12 mg PO BID Xarelto 20 mg Tablet 20 mg PO QAM Rx Instructions: must administer with evening meal coQ10 (ubiquinol) 100 mg Capsule 100 mg PO BEDTIME Discharge Orders: Discharge Order (Routine); Ordered 10/09/23 Ordered By: Isatu Kline Referrals: [facility] [Outside] Discharge Activity: Resume usual activity and Increase activity as tolerated Patient Instructions: Opioid Safety Activity Restrictions/Additional Instructions: Please start taking Augmentin and Levofloxacin today. Discharge Attestations Time Spent in Discharge Care*: greater than 30 min Quality Metrics Clinical Quality Measures [ No reported AMI, CVA or VTE this stay] Coding Level of Care Code Acute Code for g Fwd Diagnoses Sepsis A41.9 Multiple sclerosis G35 Restless leg G25.81 Decubitus ulcer L89.90 Anxiety and depression F41.9; F32.9
--- NOTE | 2023-10-09 14:04 | PC.NURSE ---
Report called to RANDOLPH Lin at [facility].
--- NOTE | 2023-10-09 15:05 | PC.NURSE ---
[facility] here to order picker pt. Pt to transport van in wheelchair with all belongings and longterm packet.
[2023-10-09 15:06] VITALS: BP 116/73; PULSE 76; RESP 16; TEMP 36.6; O2SAT 91
--- NOTE | 2023-10-16 12:11 | P.EN_ITS ---
Event Note Event Note: Received phone call from Dr. Kline regarding directive for patient. Blood culture had come back / bottles group G stre, strep dyslac. She would like to give Augmentin for 7 more days, repeat blood culture. I conveyed this to charge nurse at patient's nursing facility, had the orders read back for clarity, and gave my phone number for the patient's physician to call back if there were any questions. Charge nurse reported to me Dr. Proctor was patient's physician at the nursing facility in [facility] [place][Note 2]
== END 2023-10-09 15:07 | disposition skilled nursing facility (03) | DRG 871 ==
LOC: ER 18:25 → ICU 20:55 → MEDSURG 10-08 21:27
PROVIDERS: Emergency Medicine; Family Medicine; Admitting Provider Internal Medicine; Emergency Provider Emergency Medicine; Visit Provider Internal Medicine
DX: A40.8 Other streptococcal sepsis (principal); J18.9 Pneumonia, unspecified organism; R65.21 Severe sepsis with septic shock; L03.115 Cellulitis of right lower limb; J91.8 Pleural effusion in other conditions classified elsewhere; G35 Multiple sclerosis; F41.9 Anxiety disorder, unspecified; F32.A Depression, unspecified; G25.81 Restless legs syndrome; Z86.718 Personal history of other venous thrombosis and embolism; Z79.01 Long term (current) use of anticoagulants; L89.152 Pressure ulcer of sacral region, stage 2; L89.519 Pressure ulcer of right ankle, unspecified stage
CPT/HCPCS: 36415; 51702; 71045; 71275; 74176; 76882; 80053; 81001; 82533; 83605; 83735; 84145; 84484; 85025; 85378; 85651; 86140; 87040; 87150; 87205; 87426; 87486; 87581; 87633; 87804; 93005; 93970; 94664; 96365; 96367; 96372; 96376; 99285; C9113; J0692; J1200; J1650; J1720; J2020; J7030; P9046; Q9967

== ENCOUNTER 2023-11-02 23:30 | Emergency (ER) | payer MEDICARE, MEDICAID, SELFPAY ==
[2023-11-02 23:33] VITALS: BP 122/68; PULSE 114; RESP 14; TEMP 37.3; O2SAT 92; BMI 26.4
--- NOTE | 2023-11-02 23:42 | XRR_ITS ---
PROCEDURE INFORMATION: Exam: XR Chest Exam date and time: 11/02/2023 11:44 PM Age: 63 years old Clinical indication: Cough and fever; Patient HX: Fever; AMS; Weakness TECHNIQUE: Imaging protocol: Radiologic exam of the chest. Views: 1 view. COMPARISON: CT angio chest PE protcl [id number] 10/07/2023 3:00 PM FINDINGS: Lungs: Unremarkable. No consolidation. Pleural spaces: Unremarkable. No pleural effusion. No pneumothorax. Heart/Mediastinum: Unremarkable. No cardiomegaly. Bones/joints: Unremarkable. XR/XR chest 1V portable [id number] IMPRESSION: No acute findings.
--- NOTE | 2023-11-02 23:56 | W.ED.FEVER ---
HPI - Fever General: Chief Complaint: Fever Stated Complaint: fever Time Seen by Provider: 11/02/23 23:37 History of Present Illness: 63-year-old male presents emergency department from [facility] via EMS personnel. Patient states he has had a fever. Patient states he was recently here in the emergency department and admitted to the hospital with right lower lobe pneumonia. He states that his temperature at the [facility] was 100.2. He states that he does not like where he is staying. He states he feels like the place is very dirty and states that he has talked to the clinical social work therapist about getting placement elsewhere. He does have a history of MS he states he is doing well at present. He has no acute distress does not have increased work of breathing. He does not appear acutely ill. He denies cough, chest pain, nausea or vomiting. Associated symptoms: Deny chills or chest pain Review of Systems General: Reports: 10 or more systems reviewed and unremarkable except in HPI and below Const: Reports: fever(s); Denies: chills, fatigue or malaise Card: Denies: chest pain, irregular heart rhythm or edema Resp: Denies: dyspnea, productive cough or non-productive cough PFSH ED PFSH: Medical History (Updated 11/03/23 @ 01:18 by Benjamin Richardson MD) Joint pain Anxiety and depression Paranoia Restless leg Multiple sclerosis MS diagnosed at 31 years of age but became symptomatic at age 29 Depression Family History Other Multiple sclerosis Social History Smoking and tobacco/nicotine status: never used tobacco/nicotine Alcohol intake: never Substance/Drug Use: never Physical Exam Narrative: EXAM NARRATIVE: Constitutional: the patient appears well nourished and with normal development. Vital signs reviewed as documented. HENMT: Normocephalic, atraumatic. External ears normal appearance without drainage. Nose without drainage, normal appearance. Mucus membranes moist. Neck is supple, No jugular venous distension, trachea is midline, no appreciable carotid bruits. No lymphadenopathy. No meningeal signs. Flexion, extension and lateral rotation is without pain. Eyes: Pupils are equal, round, reactive to light and accommodation. No scleral icterus. Extra-ocular movement are intact. Thorax is symmetrical and with equal rise and fall with respirations. Resp: Lungs are clear to auscultation. No wheezes, rales, crackles or ronchi at present. Cardio: Regular rate and rhythm. Positive S1, S2. No appreciable murmurs, rubs or gallops. GI: Abdominal exam reveals normal bowel sounds to all quadrants. No organomegaly. No obvious palpable masses noted. No hepatomegally appreciated. Soft, non-tender to palpation. Extremity: Extremities are non-edematous and both femoral and pedal pulses are 2+ and equal bilaterally. Moves all extremities well, sensation in all extremities. Neuro: Alert and oriented x4, person, place, time and situation. Cranial nerves II through XII are grossly intact, there is no focal neurological deficits that I can appreciate at present. Sensation intact to all extremities. 2-point discrimination intact. Light touch intact to all extremities. Motor strength in the upper and lower extremities are equal and bilateral 5/5. Psych: Cooperative, calm, normal thought process, appropriate judgment. Skin: No lesions, rashes. No gross abnormalities noted. Back: Symmetrical, no obvious deformity, No CVA tenderness Course Vital Signs: Vital signs: Vital Signs Temperature 99.1 F 11/02/23 23:33 Pulse Rate 113 H 11/03/23 01:08 Respiratory Rate 20 H 11/03/23 01:08 Blood Pressure 121/76 11/03/23 01:08 Pulse Oximetry 91 11/03/23 01:08 Oxygen Delivery Me thod Nasal Cannula 11/02/23 23:33 Oxygen Flow Rate 3 11/02/23 23:33 MDM - Fever Medical Decision Making Physical exam completed and documented I will obtain a CBC and CMP as well as a chest x-ray for evaluation. I reviewed the patient's previous medical records patient's CBC and CMP are essentially unremarkable. His chest x-ray that was obtained today and compared to his previous does appear that his pneumonia has resolved. Given the lack of findings and afebrile presentation I suspect this is most likely an upper respiratory viral illness and I will discharge the patient home with recommended follow-up with his primary care provider. Medical Records I reviewed the patient's medical records. Lab Data I reviewed the patient's lab results. 11/03/23 00:00 11/03/23 00:00 Radiology Impressions Chest X-Ray 11/02/23 23:42 IMPRESSION: No acute findings. Laboratory Results WBC 8.20 10^3/uL (3.29-11.43) 11/03/23 00:00 RBC 5.06 10^6/uL (3.85-5.65) 11/03/23 00:00 Hgb 15.00 g/dL (11.27-16.99) 11/03/23 00:00 Hct 44.1 % (37-53) 11/03/23 00:00 MCV 87.2 fl (82-101) 11/03/23 00:00 MCH 29.6 pg (27-33) 11/03/23 00:00 MCHC 34.0 g/dL (30-55) 11/03/23 00:00 RDW 13.2 % (12.1-15.1) 11/03/23 00:00 Plt Count 189 10^3/cmm (157-399) 11/03/23 00:00 MPV 9.1 fL (7.4-10.4) 11/03/23 00:00 Neut % (Auto) 78.0 % 11/03/23 00:00 Lymph % (Auto) 8.8 % 11/03/23 00:00 [place] % (Auto) 11.3 % 11/03/23 00:00 Eos % (Auto) 1.1 % 11/03/23 00:00 Baso % (Auto) 0.6 % 11/03/23 00:00 Neut # (Auto) 6.39 10^3/uL (1.8-7.7) 11/03/23 00:00 Lymph # (Auto) 0.7 10^3/uL (0.8-4.8) L 11/03/23 00:00 Hamilton # (Auto) 0.9 10^3/uL (0.2-0.9) 11/03/23 00:00 Eos # (Auto) 0.1 10^3/uL (0.0-0.8) 11/03/23 00:00 Baso # (Auto) 0.1 10^3/uL (0.0-0.1) 11/03/23 00:00 Nucleated RBC % (auto) 0 % 11/03/23 00:00 Nucleated RBCs # 0.0 /100WBC 11/03/23 00:00 PT 14.70 SECONDS (12.1-14.9) 11/03/23 00:00 INR 1.11 (0.8-1.2) 11/03/23 00:00 APTT 35.6 SECONDS (23.9-36.7) 11/03/23 00:00 Sodium 135 mmol/L (136-145) L 11/03/23 00:00 Potassium 4.2 mmol/L (3.5-5.1) 11/03/23 00:00 Chloride 100 mmol/L (98-107) 11/03/23 00:00 Carbon Dioxide 25 mmol/L (22-29) 11/03/23 00:00 Anion Gap 14.2 (5-19) 11/03/23 00:00 BUN 16 mg/dL (8-23) 11/03/23 00:00 Creatinine 1.0 mg/dL (0.7-1.2) 11/03/23 00:00 GFR Calculation 75.5 mL/min (90-130) L 11/03/23 00:00 Glucose 158 mg/dL (65-115) H 11/03/23 00:00 Calculated Osmolality 284 mOsm/kg (285-295) L 11/03/23 00:00 Lactic Acid 1.7 mmol/L (0.5-2.2) 11/03/23 00:00 Calcium 9.0 mg/dL (8.5-10.5) 11/03/23 00:00 Total Bilirubin 0.3 mg/dL (0.15-1.2) 11/03/23 00:00 AST 18 U/L (0-40) 11/03/23 00:00 ALT 16 U/L (0-41) 11/03/23 00:00 Alkaline Phosphatase 99 U/L (40-130) 11/03/23 00:00 Total Protein 6.4 g/dL (6.6-8.7) L 11/03/23 00:00 Albumin 4.0 g/dL (3.5-5.2) 11/03/23 00:00 Globulin 2.4 g/dL (1.3-4.6) 11/03/23 00:00 Procalcitonin 0.08 ng/mL (0-0.5) 11/03/23 00:00 Urine Color Yellow (Yellow) 11/03/23 00:12 Urine Appearance Clear (CLEAR) 11/03/23 00:12 Urine pH 7 (5-7) 11/03/23 00:12 Ur Specific [place] 1.010 (1.005-1.030) 11/03/23 00:12 Urine Protein Neg (Negative) 11/03/23 00:12 Urine Glucose (UA) Norm (Normal) 11/03/23 00:12 Urine Ketones Negative (Negative) 11/03/23 00:12 Urine Blood Neg (Negative) 11/03/23 00:12 Urine Nitrate Negative (Negative) 11/03/23 00:12 Urine Bilirubin Neg (Negative) 11/03/23 00:12 Urine Urobilinogen Norm mg/dL (Negative) 11/03/23 00:12 Ur Leukocyte Esterase Negative (Negative) 11/03/23 00:12 Influenza Type A Ag negative (Negative) 11/02/23 23:53 Influenza Type B Ag negative (Negative) 11/02/23 23:53 SARS-CoV-2 Ag (Rapid) negative (Negative) 11/02/23 23:53 All radiology interpretation(s) finalized by discharge Discharge Plan Discharge Patient Disposition: Home Clinical Impression: Viral upper respiratory illness Fever Qualifiers: Fever type: unspecified Qualified Code(s): R50.9 - Fever, unspecified Condition: Stable Prescriptions: No Action (DME) Motorized Wheelchair Qty: 1 0RF Rx Instructions: As directed acetaminophen 325 mg Tablet 650 mg PO Q6H PRN (Reason: pain/elevated temp) hydrocodone-acetaminophen 5-325 mg Tablet 1 tab PO Q6H PRN (Reason: Pain) Milk of Magnesia 400 mg/5 mL Suspension 30 ml PO DAILY PRN (Reason: Constipation) diazepam 2 mg tablet 2 mg PO Q8H PRN (Reason: anxiety/muscle spasm) gabapentin 300 mg capsule 300 mg PO BID Amparo[place] 200-200-20 mg/5 mL Suspension 30 ml PO Q6H PRN (Reason: gi upset) Rx Instructions: administer between meals and at bedtime Miralax 17 gram/dose Powder 17 g PO DAILY PRN (Reason: Constipation) naloxone 1 mg/mL Syringe 2 mg IM PRN PRN (Reason: opiate overdose) Rx Instructions: NTExceed 10 mg total dose/episode rosuvastatin 10 mg tablet 10 mg PO BEDTIME Vitamin D3 25 mcg (1,000 unit) Tablet 25 mcg PO QAM ropinirole 12 mg Tablet Extended Release 24 Hr 12 mg PO BID Xarelto 20 mg Tablet 20 mg PO QAM Rx Instructions: must administer with evening meal coQ10 (ubiquinol) 100 mg Capsule 100 mg PO BEDTIME amoxicillin-pot clavulanate 875-125 mg tablet 1 tab PO Q12H Qty: 9 0RF Discharge Orders: Discharge ED (Routine); Ordered 11/03/23 Ordered By: Benjamin Richardsno Discharge Diet: Usual diet Discharge Activity: Resume usual activity Patient Instructions: Opioid Safety, Pain Management Activity Restrictions/Additional Instructions: Activity Restrictions/Additional Instructions: Thank you for choosing [facility] for your healthcare needs today. Please realize that you were seen in the Emergency Department and that we are providing you with an emergency medical screening exam and this may not be a complete and all inclusive of all the testing and or medical work-up that you may need to determine your ailment or severity of your illness. It is very important that you follow-up as instructed with your Primary care provider or Specialist for additional evaluation and to discuss your medical treatment plan. Coding Level of Care Code ED Coordinate Measuring Equipment Operator for Katelyn Malone
[2023-11-03 00:16] LABS: Influenza A by IFA negative (Negative); Influenza B by IFA negative (Negative); SARS Covid-2 Antigen negative (Negative)
[2023-11-03 00:25] LABS: INR 1.11 (0.8-1.2); Partial Thromboplastin Time 35.6 SECONDS (23.9-36.7)
[2023-11-03 00:25] LABS: Add Urine Microscopic? NO; Charge for UA Resulting for Rev
[2023-11-03 00:29] LABS: Lactic Sepsis W/Reflex 1.7 mmol/L (0.5-2.2)
[2023-11-03 00:32] LABS: Bilirubin Urine Neg (Negative); Blood Urine Neg (Negative); Glucose Urine UA Norm (Normal); Ketones Urine Negative (Negative); Leukocyte Esterase Urine Negative (Negative); Nitrate Urine Negative (Negative); Protein Urine Neg (Negative); Urine Appearance Clear (CLEAR); Urine Color Yellow (Yellow); Urobilinogen Urine Norm (Negative); pH Urine 7 (5-7)
[2023-11-03 00:38] LABS: Basophils # 0.1 10^3/uL (0.0-0.1); Basophils % 0.6 %; Eosinophils # 0.1 10^3/uL (0.0-0.8); Eosinophils % 1.1 %; Hematocrit 44.1 % (37-53); Lymphocytes # 0.7 10^3/uL (0.8-4.8); Lymphocytes % 8.8 %; Mean Corpuscular Hemoglobin 29.6 pg (27-33); Mean Corpuscular Volume 87.2 fl (82-101); Mean Platelet Volume 9.1 fL (7.4-10.4); Monocytes # 0.9 10^3/uL (0.2-0.9); Monocytes % 11.3 %; Neutrophils # 6.39 10^3/uL (1.8-7.7); Nucleated Red Blood Cells % 0 %; Platelet Count 189 10^3/cmm (157-399); Red Blood Count 5.06 10^6/uL (3.85-5.65); Red Cell Distribution Width 13.2 % (12.1-15.1)
[2023-11-03 00:39] LABS: Alanine Aminotransferase 16 U/L (0-41); Alkaline Phosphatase 99 U/L (40-130); Anion Gap 14.2 (5-19); Aspartate Amino Transferase 18 U/L (0-40); Blood Urea Nitrogen 16 mg/dL (8-23); Carbon Dioxide 25 mmol/L (22-29); Chloride 100 mmol/L (98-107); Creatinine Clr Calc Pharmacy 87.6307; Globulin 2.4 g/dL (1.3-4.6); Glomerular Filtration Rate 75.5 mL/min (90-130); Glucose 158 mg/dL (65-115); Osmolality Calculated 284 mOsm/kg (285-295); Potassium 4.2 mmol/L (3.5-5.1); Sodium 135 mmol/L (136-145); Total Bilirubin 0.3 mg/dL (0.15-1.2); Total Protein 6.4 g/dL (6.6-8.7)
[2023-11-03 00:45] LABS: Procalcitonin 0.08 ng/mL (0-0.5)
[2023-11-03 01:08] VITALS: BP 121/76; PULSE 113; RESP 20; O2SAT 91
== END 2023-11-03 03:47 | disposition home or self-care (01) ==
PROVIDERS: Emergency Provider Internal Medicine
DX: J06.9 Acute upper respiratory infection, unspecified (principal); Z11.52 Encounter for screening for COVID-19; G35 Multiple sclerosis
CPT/HCPCS: 36415; 71045; 80053; 81003; 83605; 84145; 85025; 85610; 85730; 87040; 87426; 87804; 99284

== ENCOUNTER → 2024-02-18 16:24 | Outpatient (BNVA) | payer MEDICARE, MEDICAID, SELFPAY | PROVIDERS: PCP Nurse Practitioner Family; Visit Provider Nurse Practitioner Family | DX: N39.0 Urinary tract infection, site not specified (principal) | CPT/HCPCS: 81003; 87086 ==

== ENCOUNTER 2025-03-18 15:11 | Emergency (ER) | payer MEDICARE, MEDICAID, SELFPAY ==
[2025-03-18 15:15] VITALS: BP 117/78; PULSE 78; RESP 16; TEMP 37; O2SAT 94
--- NOTE | 2025-03-18 15:31 | W.ED.WOUNDLC ---
HPI - Wound/Laceration General: Chief Complaint: Wound/Laceration Stated Complaint: WOUND R ANKLE Time Seen by Provider: 03/18/25 15:22 Source: patient and EMS Mode of arrival: EMS Limitations: no limitations History of Present Illness: 64-year-old male who has a history of chronic wound to his right lateral ankle pressure wound he is bedbound. States has been there for years states he has new home health nurse who sent him here to have it evaluated he denies any change in wound denies any fever denies any pain Associated symptoms: Denies chills, fever(s), nausea or vomiting Related Data Home Medications ?Medication ?Instructions ?Recorded ?Confirmed polyethylene glycol 3350 17 17 g PO DAILY PRN Constipation 10/07/23 01/29/25 gram/dose oral powder (Miralax) ondansetron HCl 4 mg tablet 4 mg PO Q8H 06/10/24 01/29/25 tizanidine 2 mg capsule 2 mg PO BID 06/10/24 01/29/25 Previous Rx's ?Medication ?Instructions ?Recorded Motorized Wheelchair #1 ea 11/06/19 head of bed tranfer device #1 ea 01/30/24 trapeze bar for bed #1 ea 01/30/24 gabapentin 300 mg capsule 300 mg PO BID #60 caps 02/25/25 hydrocodone 5 mg-acetaminophen 325 1 tab PO Q8H PRN Pain 10 days #30 02/25/25 mg tablet tabs rivaroxaban 20 mg tablet (Xarelto) 20 mg PO QAM #30 tabs 02/25/25 ropinirole 12 mg tablet,extended 12 mg PO BID #180 tabs 02/25/25 release 24 hr Motorized wheelchair replacement #1 ea 02/26/25 sulfamethoxazole 800 1 tab PO BID 10 days #20 tabs 03/18/25 mg-trimethoprim 160 mg tablet (Bactrim DS) Allergies Allergy/AdvReac Type Severity Reaction Status Date / Time Iodinated Contrast Media AdvReac nausea and Verified 01/29/25 08:45 vomiting Review of Systems Const: Denies: fever(s), chills, body aches or change in appetite ENMT: Denies: throat pain or dental pain Card: Denies: chest pain Resp: Denies: dyspnea GI: Denies: abdominal pain, nausea, vomiting or diarrhea Musc: Denies: neck pain or back pain Skin/Breast: Denies: rash Neuro: Denies: headache(s) PFSH ED PFSH: Medical History Psychiatric care Multiple sclerosis MS diagnosed at 31 years of age but became symptomatic at age 29 Joint pain Anxiety and depression Restless leg Depression Family History Other Multiple sclerosis Social History Smoking and tobacco/nicotine status: never used tobacco/nicotine Alcohol intake: never Substance/Drug Use: never Physical Exam Const: COMMON NORMALS: no acute distress, patient oriented x3 and healthy appearing HENMT: COMMON NORMALS: normocephalic and atraumatic HEAD & SCALP: normocephalic and atraumatic Eye: COMMON NORMALS: conjunctivae normal CONJUNCTIVA: Yes conjunctivae normal Neck/C-Spine: COMMON NORMALS: full ROM and supple Chest: COMMONS NORMALS: normal inspection of the chest Resp: COMMON NORMALS: normal respiratory effort, No retractions, No use of accessory muscles and clear to auscultation bilaterally AUSCULTATION: clear to auscultation bilaterally Cardio: COMMON NORMALS: regular rate, regular rhythm and No murmurs present (Cardio) RATE: regular rate RHYTHM: regular rhythm Extremity: COMMON NORMALS: full ROM Neuro: COMMON NORMALS: patient oriented x3, moves all extremities and no focal motor deficits Psych: COMMON NORMALS: mental status grossly normal, Normal thought process present and cooperative THOUGHT PROCESS: Normal thought process present Skin: NARRATIVE SKIN EXAM: Chronic ulcer roughly half dollar sized lateral right ankle mild erythema no necrosis Course Vital Signs: Vital signs: Vital Signs Temperature 98.6 F 03/18/25 15:15 Pulse Rate 78 03/18/25 15:15 Respiratory Rate 16 03/18/25 15:15 Blood Pressure 117/78 03/18/25 15:15 Pulse Oximetry 94 03/18/25 15:15 Oxygen Delivery Me thod Room Air 03/18/25 15:15 MDM - Wound/Laceration Medical Decision Making Patient presents with a chronic ulcer no signs of severe infection will start him on Bactrim we will get him wound care return if worsening. No radiology studies performed this visit Discharge Plan Discharge Patient Disposition: Home Clinical Impression: Chronic ulcer of right ankle Condition: Stable Prescriptions: New sulfamethoxazole-trimethoprim [Bactrim DS] 800-160 mg tablet 1 tab PO BID 10 Days Qty: 20 0RF No Action (DME) Motorized Wheelchair Qty: 1 0RF Rx Instructions: As directed tizanidine 2 mg capsule 2 mg PO BID ondansetron HCl 4 mg tablet 4 mg PO Q8H (DME) trapeze bar for bed See Rx Instructions .Route .MEDSUPPLY Qty: 1 0RF Rx Instructions: As directed, pt unable to ambulate due to MS (DME) head of bed tranfer device See Rx Instructions .Route .MEDSUPPLY Qty: 1 0RF Rx Instructions: plywood board with sitka with hole cut out that fits at head of bed to help with transfer gabapentin 300 mg capsule 300 mg PO BID Qty: 60 0RF hydrocodone-acetaminophen 5-325 mg tablet 1 tab PO Q8H PRN (Reason: Pain) 10 Days Qty: 30 0RF Xarelto 20 mg tablet 20 mg PO QAM Qty: 30 0RF Rx Instructions: must administer with evening meal ropinirole 12 mg tablet extended release 24 hr 12 mg PO BID Qty: 180 3RF (DME) Motorized wheelchair replacement See Rx Instructions .Route .MEDSUPPLY Qty: 1 0RF Rx Instructions: As directed, replacement, [facility] Miralax 17 gram/dose Powder 17 g PO DAILY PRN (Reason: Constipation) Discharge Orders: Discharge ED (Routine); Ordered 03/18/25 Ordered By: Loyda Monique Referrals: Mario Escamilla MD [Physician, Wound Care] - 4-7 days Gustavo Bermudez FNP [Primary Care Provider, Family Practice] Discharge Diet: Advance as tolerated Discharge Activity: Resume usual activity Patient Instructions: Chronic Wound Care (ED) Print Language: Moroccan Coding Level of Care Code ED Integrated Circuit Design Engineer for Katelyn Malone
[2025-03-18 17:18] VITALS: BP 121/92; PULSE 68; O2SAT 96
--- NOTE | 2025-03-19 16:35 | PC.NURSE ---
wound care referral sent.
--- OUTSIDE RECORDS SUMMARY | 2025-03-20 02:53 | XMS_ITS | Clinical Summary ---
Author Organization [facility] Address [address] [address] Phone Care Team Providers Care Knitting Machine Fixer Name Role Phone Anup Simon MD Primary Care Provider Allergies Active Allergy Reactions Criticality Noted Date Comments Iodinated Contrast Media Nausea and Vomiting Low Medications HYDROcodone-aracelis taminophen (NORCO) 5-325 mg tablet Take 1 Tablet by mouth every 4 hours as needed. Active Xarelto 20 mg Tablet Take 20 mg by mouth daily. 08/22/2022 Active rOPINIRole (Requip XL) 12 mg Extended Release 24 hour tablet Take 12 mg by mouth daily. Active gabapentin (NEURONTIN) 300 mg capsule 300 mg 2 times daily. 10/29/2023 Active docusate sodium (COLACE) 100 mg capsule Take 1 Capsule (100 mg) by mouth 2 times daily. 11/19/2023 Active diazePAM (VALIUM) 5 mg tablet Take 5 mg by mouth every 8 hours as needed for Spasm. Active tiZANidine (ZANAFLEX) 2 mg Tablet Take 1 Tablet (2 mg) by mouth 2 times daily. 60 Tablet 6 05/08/2024 Active Active Problems Problem Noted Date Diagnosed Date Spasticity 11/13/2024 Influenza A 11/16/2023 Coronavirus infection 11/16/2023 MS (multiple sclerosis) 11/15/2023 Probable sepsis 11/13/2023 Acute cystitis without hematuria 11/13/2023 Pneumonia of both lungs due to infectious organi sm 11/13/2023 Wound cellulitis 09/19/2022 Unable to care for self 09/19/2022 Pressure injury of deep tissue of right ankle Benign prostatic hyperplasia (BPH) with straining on urination 11/24/2021 Pressure injury of right ankle, stage 3 03/22/20 21 B12 deficiency 12/29/2020 Overview (09/19/2022): Last Assessment & Plan: 06/08/20 B12 144 Monthly B12 injections Last Assessment & Plan: 06/08/20 B12 144 Monthly B12 injections Neurogenic bladder 05/14/2019 Mild recurrent major depression 04/08/2018 Overview (09/19/2022): Last Assessment & Plan: Citalopram 40 mg daily Restless legs syndrome 10/08/2017 Overview (09/19/2022): Last Assessment & Plan: Decreased ropinrole XL to 8 mg in the evening Ropinrole 2 mg p.r.n. dose discontinued Gabapentin 600 mg at night If ongoing paranoid delusions, ropinrole XL dose will need to be decreased further. Abilify 2 mg at night may be exacerbating his restless legs. Last Assessment & Plan: Ropinrole XL 10 mg in the evening Multiple sclerosis 01/03/2014 Overview (09/19/2022): MULTIPLE SCLEROSIS Diagnosis est 1991 DMT history Betaseron est 1705-9362 Avonex est 3148-1826, mild progression Copaxone est 9147-8241 Novantrone (plus Copaxone) est 2006- Methotrexate (plus Copaxone) 0271-7159 Imuran (plus Copaxone) 2007, nausea Avonex 11/2007-02/2008, severe fatigue 2007-11/2010 off DMT Gilenya 11/30/2010- est 03/2013 Off DMT Ocrevus: 02/26/17-06/04/19 Kesimpta: 05/05/20 initiated Last Assessment & Plan: 10/14/15 NMO negative Extensive spinal cord disease and mild periventricular white matter disease. Overdue for next Ocrevus infusion. His last Ocrevus infusion was June 04, 2019. The benefits and risks of Ocrevus discussed including serious infusion reactions, serious infections including respiratory/herpetic/PML infections and potential malignancy. Increased risk of serious complications if develops coronavirus infection (COVID-19) discussed including pneumonia and possible reviewed. Immune competency panel ordered to see if his B cells have recovered. If his B cells have returned, will proceed with next infusion with dose divided 2 weeks apart. If his B cells have not recovered yet, he would like to delay treatment until perhaps ofatumumab on the market if timing works. Vitamin D3 5000 IU daily Contact primary care physician for diarrhea and elevated creatinine MRI brain and cervical spine May 2021 MULTIPLE SCLEROSIS Diagnosis est 1991 DMT history Betaseron est 1845-3721 Avonex est 7944-7206, mild progression Copaxone est 7604-3668 Novantrone (plus Copaxone) est 2005- Methotrexate (plus Copaxone) 9271-3937 Imuran (plus Copaxone) 2006, nausea Avonex 11/2007-02/2008, severe fatigue 2007-11/2010 off DMT Gilenya 11/30/2010- est 03/2013 Off DMT Ocrevus: 02/26/17-06/04/19 Kesimpta: 05/05/20 initiated Last Assessment & Plan: 10/14/15 NMO negative Extensive spinal cord disease and mild periventricular white matter disease. Right leg weakness since 1988. Diagnosis 1991. Next Ocrevus infusion November 03, 2022. The benefits and risks of Ocrevus discussed including serious infusion reactions, serious infections including respiratory/herpetic/PML infections and potential malignancy. Increased risk of serious complications including pneumonia and possibly if develops COVID-19 reinfection discussed. COVID-19 mRNA vaccination recommended strongly again. He understands that Ocrevus may reduce the efficacy of a COVID-19 vaccine and potentially may not be protected. Paxlovid advised if he develops COVID-19 again. Evusheld deferred due to cardiovascular risks. Kesimpta July 2020 only; discontinued with COVID-19 infection. Received 2 Novantrone infusions in 2005 Vitamin D3 5000 IU daily Encounters Date Type Department Care Team Description 03/10/2025 External Device Data [facility] ABSTRACTION Provider, Abstract 03/05/2025 External Device Data [facility] ABSTRACTION Provider, Abstract 01/20/2025 9:44 AM CDT - 01/20/2025 11:59 PM CDT Hospital Encounter [facility] [place] [address] [place] [address] Sanjeev Fields MD Discharge Disposition: Home or Self Care 01/20/2025 External Device Data [facility] ABSTRACTION Provider, Abstract 01/09/2025 External Device Data [facility] ABSTRACTION Provider, Abstract 01/08/2025 External Device Data [facility] ABSTRACTION Provider, Abstract 01/07/2025 External Device Data [facility] ABSTRACTION Provider, Abstract from Last 3 Months Family History Medical History Relation Name Comments Healthy Father Healthy Mother Relation Name Status Comments Father Alive Mother Alive Social History Tobacco Use Types Packs/Day Years Used Date Smoking Tobacco: Former Smokeless Tobacco: Never Tobacco Cessation:Counseling Given: Not Answered Alcohol Use Standard Drinks/Week Comments Never 0 (1 standard drink = 0.6 oz pur e alcohol) Sex and Gender Information Value Date Recorded Sex Assigned at Not on file Legal Sex 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 Gender Identity Not on file Sexual Orientation Not on file Last Filed Vital Signs Vital Sign Reading Time Taken Comments Blood Pressure 121/75 01/20/2025 9:52 AM CDT Pulse 83 01/20/2025 9:52 AM CDT Temperature 36.5 C (97.7 F) 01/20/2025 9:52 AM CDT Respiratory Rate 18 01/20/2025 9:52 AM CDT Oxygen Saturation 93% 01/20/2025 9:52 AM CDT Inhaled Oxygen Concentration - - Weight 99.8 kg (220 lb) 11/13/2024 9:54 AM CDT Height 182.9 cm (6') 11/13/2024 9:54 AM CDT Body Mass Index 29.84 11/13/2024 9:54 AM CDT Plan of Treatment Upcoming Encounters Date Type Department Care Team (Late st Contact Info) Description 05/14/2025 10:00 AM CDT Appointment [facility] [place] [address] [place] [phone] Sanjeev Fields MD [address] [place] [phone] 07/22/2025 10:00 AM MANAGEMENT INSTRUCTOR Appointment [facility] [place] [address] [place] [address] Health Maintenance Due Date Last Done Comments Pre-Diabetes and Diabetes Screening 1960 COLORECTAL SCREENING 2005 Colorectal Cancer Screening 2005 FIT-DNA Q 3 years 2005 FIT/FOBT Q 1 year 2005 Flex Sig/CT Colonography Q 5 years 2005 DTAP/TDAP/TD VACCINES (1 - Tdap) 12/27/2005 12/27/19 06, 07/22/1999 ZOSTER VACCINE (1 of 2) 2010 INFLUENZA VACCINE (#1) 2025 07/09/2023 RSV VACCINE (60+ or ) (1 - 1-dose 75+ series) 2035 Insurance MEDICAID [place] MEDICARE PART A AND B GENERIC MEDICARE MANAGED CARE Advance Directives For more information, please contact: [phone] * Full Code (Latest Code Status on File) Date Activated Date Inactivated Comments 11/13/2023 11:23 AM 11/20/2023 5:55 PM * Full Code Date Activated Date Inactivated Comments 11/13/2023 8:01 AM 11/13/2023 11:04 AM * Full Code Date Activated Date Inactivated Comments 09/19/2022 4:12 PM 09/23/2022 5:54 PM Care Teams Knitting Machine Fixer Relationship Specialty Start Date End Date Anup Simon MD [address] [place] [address] [place] [id number] PCP - General Family Practice 08/20/19
--- OUTSIDE RECORDS SUMMARY | 2025-03-20 02:53 | XMS_ITS | Encounter Summary ---
Author Organization [facility] Address 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[employer] Gender Identity Not on file Sexual Orientation Not on file documented as of this encounter Plan of Treatment Upcoming Encounters Date Type Department Care Team (Late Contact Info) Description 05/14/2025 10:00 AM CDT Appointment [facility] [address] [place] [address] Sanjeev Fields MD [address] [place] [phone] 07/22/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
--- OUTSIDE RECORDS SUMMARY | 2025-03-20 02:53 | XMS_ITS | Continuity of Care Document ---
Author Organization [facility] ([facility]) Address [address] [place] [address] Insurance Providers Payer Plan Claims Address Claims Phone Policy Number Group Number Relation Employer Guarantor Name Guarantor Guarantor Address Guarantor Phone Medic are Adv. MAO PDPM - BCBS [id number] Self JAKE ROSE [address] [id number] Problems Condition ICD9 code ICD10 code SNOMED code Start Date End Date S tatus Partial intestinal obstruction, unspecified as to cause K56.600 03/28/2023 Active Unilateral inguinal hernia, without obstruction or gangrene, not specified as recurrent K40.90 03/28/2023 Active Constipation, unspecified K59.00 03/28/2023 Active Full incontinence of feces R15.9 04/30/2023 Active Unspecified urinary incontinence R32 04/10/2023 Active Multiple sclerosis G35 03/28/2023 Ac tive Restless legs syndrome G25.81 03/28/2023 Active Other chronic pain G89.29 04/02/2023 Ac tive Muscle weakness (generalized) M62.81 03/29/2023 Active Hemiplegia, unspecified affecting right dominant side G81.91 03/28/2023 Active manager intermediate (current) use of anticoagulants Z79.01 03/28/2023 Active Personal history of other venous thrombosis and embolism Z86.718 03/29/2023 Active Vitamin D deficiency, unspecified E55.9 03/29/2023 Active Neuromuscular dysfunction of bladder, unspecified N31.9 03/29/2023 A ctive Pressure ulcer of right ankle, stage 2 L89.512 03/30/2023 Active Pressure ulcer of unspecified heel, unspecified stage L89.609 03/29/2023 Active Pressure ulcer of sacral region, unspecified stage L89.159 03/29/2023 Active Unvaccinated for COVID-19 Z28.310 03/28/2023 Active Results No Results Allergies, adverse reactions, alerts No known allergies and adverse reactions Immunizations Vaccine Route Date Status Pneumococcal Vaccine Unassigned Route of Administratio n 03/29/2023 Refused Medications Medication Instructions Route Dosage Frequency Start Date Stop Date Indications Status acetaminophen 325 mg tablet (acetaminophen) 1 tablet, oral, Every 6 Hours - PRN oral 1.0 6.0 h 05/08 Active cholecalciferol (vitamin D3) 25 mcg (1,000 unit) capsule (cholecalcifero l (vitamin D3)) 1 capsule, oral, Once A Day oral 1.0 1.0 d 05/08 Active Cipro (ciprofloxacin hcl) 500 mg tablet (Cipro (ciprofloxacin hcl)) 1 tab, oral, Twice A Day oral 1.0 12.0 h 04/16 Active Cipro (ciprofloxacin hcl) 500 mg tablet (Cipro (ciprofloxacin hcl)) 1 tab, oral, Twice A Day oral 1.0 12.0 h 05/08 Active cyanocobalamin (vitamin B-12) 500 mcg tablet (cyanocobalamin (vitamin B-12)) 1 tablet, oral, Once A Day oral 1.0 1.0 d 04/11 Active hydrocodone-aracelis taminophen 5-325 mg tablet (hydrocodone-ac etaminophen) 1 tablet, oral, Every 6 Hours - PRN oral 1.0 6.0 h 05/08 Active Miralax (polyethylene glycol 3350) 17 gram/dose powder (Miralax (polyethylene glycol 3350)) 17 grams, oral, Once A Day oral 1.0 1.0 d 04/10 Active Miralax (polyethylene glycol 3350) 17 gram/dose powder (Miralax (polyethylene glycol 3350)) 17 grams, oral, As Needed oral 1.0 1.0 d 05/08 Active ropinirole 4 mg tablet extended release 24 hr (ropinirole) 1 tab, oral, At Bedtime, Administer 4mg with 6mg to equal 10mg PO HS oral 1.0 05/08 Active ropinirole 6 mg tablet extended release 24 hr (ropinirole) 1 tab, oral, At Bedtime, Administer 6mg with 4mg to equal 10mg PO HS oral 1.0 05/08 Active Tubersol (tuberculin ppd) 5 tub. unit /0.1 mL solution (Tubersol (tuberculin ppd)) 0.1ml, intradermal, Once - One Time, Step 1 PPD intraderma l 1.0 05/08 Active Tubersol (tuberculin ppd) 5 tub. unit /0.1 mL solution (Tubersol (tuberculin ppd)) 0.1ml, intradermal, Once - One Time intraderma l 1.0 05/08 Active Xarelto (rivaroxaban) 20 mg tablet (Xarelto (rivaroxaban)) 1 tablet, oral, Once A Day oral 1.0 1.0 d 05/08 Active Vital Signs Date Vital Result Comment 05/08/2023 08:39 AM Temperature (8310-5) 97.5 [degF] Oxygen Saturation (32985-8) 97 % Respiratory Rate (9279-1) 16 /min Heart Rate (8867-4) 74 /min Blood Pressure Systolic (8480-6) 108 mm[Hg] Blood Pressure Diastolic (8462-4) 64 mm[Hg] 05/08/2023 01:02 AM Temperature (8310-5) 97.7 [degF] Oxygen Saturation (30808-8) 96 % Respiratory Rate (9279-1) 18 /min Heart Rate (8867-4) 70 /min Blood Pressure Systolic (8480-6) 123 mm[Hg] Blood Pressure Diastolic (8462-4) 62 mm[Hg] 05/07/2023 04:00 PM Temperature (8310-5) 98.2 [degF] Oxygen Saturation (26143-5) 95 % Respiratory Rate (9279-1) 18 /min Heart Rate (8867-4) 77 /min Blood Pressure Systolic (8480-6) 118 mm[Hg] Blood Pressure Diastolic (8462-4) 72 mm[Hg] 05/07/2023 01:17 PM Body mass index (BMI) [Ratio] (391 56-5) 0.0 kg/m2 Body Weight (83642-4) 168.4 [lb_av] 05/07/2023 10:53 AM Temperature (8310-5) 97.5 [degF] Oxygen Saturation (30484-7) 98 % Respiratory Rate (9279-1) 18 /min Heart Rate (8867-4) 76 /min Blood Pressure Systolic (8480-6) 138 mm[Hg] Blood Pressure Diastolic (8462-4) 78 mm[Hg] 05/07/2023 01:22 AM Temperature (8310-5) 97.3 [degF] Oxygen Saturation (86385-1) 96 % Respiratory Rate (9279-1) 17 /min Heart Rate (8867-4) 62 /min Blood Pressure Systolic (8480-6) 105 mm[Hg] Blood Pressure Diastolic (8462-4) 59 mm[Hg] 05/06/2023 04:05 PM Temperature (8310-5) 97.6 [degF] Oxygen Saturation (42309-8) 96 % Respiratory Rate (9279-1) 18 /min Heart Rate (8867-4) 82 /min Blood Pressure Systolic (8480-6) 115 mm[Hg] Blood Pressure Diastolic (8462-4) 61 mm[Hg] 05/06/2023 11:10 AM Temperature (8310-5) 97.4 [degF] Oxygen Saturation (41544-4) 97 % Respiratory Rate (9279-1) 18 /min Heart Rate (8867-4) 72 /min Blood Pressure Systolic (8480-6) 120 mm[Hg] Blood Pressure Diastolic (8462-4) 72 mm[Hg] 05/06/2023 05:23 AM Temperature (8310-5) 97.6 [degF] Oxygen Saturation (69995-3) 97 % Respiratory Rate (9279-1) 20 /min Heart Rate (8867-4) 67 /min Blood Pressure Systolic (8480-6) 124 mm[Hg] Blood Pressure Diastolic (8462-4) 68 mm[Hg] 05/05/2023 06:18 PM Temperature (8310-5) 97 [degF] Oxygen Saturation (81971-9) 99 % Respiratory Rate (9279-1) 19 /min Heart Rate (8867-4) 68 /min Blood Pressure Systolic (8480-6) 137 mm[Hg] Blood Pressure Diastolic (8462-4) 56 mm[Hg] 05/05/2023 08:43 AM Temperature (8310-5) 97.3 [degF] Oxygen Saturation (54905-1) 96 % Respiratory Rate (9279-1) 16 /min Heart Rate (8867-4) 74 /min Blood Pressure Systolic (8480-6) 127 mm[Hg] Blood Pressure Diastolic (8462-4) 64 mm[Hg] 04/25/2023 01:06 PM Body mass index (BMI) [Ratio] (391 56-5) 0.0 kg/m2 Body Weight (16947-1) 179.2 [lb_av] 04/08/2023 10:13 AM Body mass index (BMI) [Ratio] (391 56-5) 0.0 kg/m2 Body Weight (13130-2) 180.5 [lb_av] Social History Element Description Date Comment Tobacco smoking status NHIS Unknown if ever smoked Encounters Type CPT Code Date Location Provider Indication s encounter report 03/28/2023 03:2 4 PM - 05/08/2023 09:46 AM MATTHEW SWAIN MD 01 Advance Directives Directive Description Verification Date Supporting Document(s) Other Directive
== END 2025-03-18 17:31 | disposition home or self-care (01) ==
PROVIDERS: Emergency Provider Emergency Medicine; PCP Family Medicine
DX: L97.318 Non-pressure chronic ulcer of right ankle with other specified severity (principal)
CPT/HCPCS: 99283